=== PATIENT | male | born 1960 | race Hispanic/Latino ===

== ENCOUNTER 2020-04-12 14:13 | Inpatient (IN) | payer OTHER ==
--- NOTE | 2020-04-12 14:33 | Emergency Department Report ---
ED Neuro Deficit HPI - General Chief Complaint: Neuro Symptoms/Deficit Stated Complaint: LT ARM NUMBNESS Time Seen by Provider: 04/12/20 14:28 Source: EMS Mode of arrival: Stretcher Limitations: Other - History of Present Illness Initial Comments: 59-year-old male, history of prior CVA and TIAs, presents to ED with worsening left-sided weakness and [facility] Patient reports baseline left arm weakness from prior CVA. He states his left arm and leg numbness and weakness began at 3 PM on yesterday. Patient reports he was seen at the [facility] at that time. Patient states upon waking this morning his slurred speech and weakness are significantly worse. -: days(s) (1) Location: speech, left arm, left leg Presenting Symptoms: Present: Weak/Paralyzed One Side, Unable to Speak Clearly History of same: Yes Severity: moderate Improves With: none Worsens With: none On Anticoagulants: No Context: gradual onset Associated Symptoms: denies: chest pain, headaches, shortness of breath Treatments Prior to Arrival: none - Related Data Home Medications: Home Medications Medication Instructions Recorded Confirmed Last Taken Ibuprofen [Motrin] 800 mg PO BID PRN 04/14/20 04/14/20 Unknown Lamisil At 1% CREAM 1 applic TRANSDERMA DAILY 04/14/20 04/14/20 Unknown Lisinopril [Zestril TAB] 15 mg PO QDAY 04/14/20 04/14/20 2 Days Ago ~04/12/20 Terbinafine (Nf) [LamiSIL] 250 mg PO QDAY 04/14/20 04/14/20 Unknown hydroCHLOROthiazide [HCTZ] 25 mg PO QDAY 04/14/20 04/14/20 2 Days Ago ~04/12/20 Allergies/Adverse Reactions: Allergies Allergy/AdvReac Type Severity Reaction Status Date / Time clonidine AdvReac Unknown Verified 04/12/20 14:54 codeine AdvReac Unknown Verified 04/12/20 14:54 Penicillins AdvReac Unknown Verified 04/12/20 14:54 ED Review of Systems ROS: Stated complaint: LT ARM NUMBNESS Other details as noted in HPI Comment: All other systems reviewed and negative Constitutional: denies: fever Cardiovascular: denies: chest pain Neurological: weakness. denies: headache ED Past Medical Hx - Medications Home Medications: Home Medications Medication Instructions Recorded Confirmed Last Taken Type Ibuprofen [Motrin] 800 mg PO BID PRN 04/14/20 04/14/20 Unknown History Lamisil At 1% CREAM 1 applic TRANSDERMA DAILY 04/14/20 04/14/20 Unknown History Lisinopril [Zestril TAB] 15 mg PO QDAY 04/14/20 04/14/20 2 Days Ago History ~04/12/20 Terbinafine (Nf) [LamiSIL] 250 mg PO QDAY 04/14/20 04/14/20 Unknown History hydroCHLOROthiazide [HCTZ] 25 mg PO QDAY 04/14/20 04/14/20 2 Days Ago History ~04/12/20 ED Neuro Physical Exam - General Limitations: Other General appearance: alert, in no apparent distress Suspected Stroke: Yes - Head Head exam: Present: atraumatic, normocephalic - Eye Eye exam: Present: normal appearance, EOMI - ENT ENT exam: Present: normal exam, mucous membranes moist - Neck Neck exam: Present: normal inspection - Respiratory Respiratory exam: Present: normal lung sounds bilaterally. Absent: respiratory distress - Cardiovascular Cardiovascular Exam: Present: regular rate, normal rhythm - GI/Abdominal GI/Abdominal exam: Present: soft. Absent: distended, tenderness - Extremities Exam Extremities exam: Present: normal inspection - Neurological Exam Neurological exam: Present: alert, oriented X3 - NIHSS Assessment Interval: Baseline 1a. Level of Consciousness: alert/keenly responsive 1b. LOC Questions: answers both correctly 1c. LOC Commands: performs tasks correctly 2. Best Gaze: normal 3. Visual: no visual loss 4. Facial Palsy: partial paralysis 5b. Motor Arm Right: no drift 5a. Motor Arm Left: drift 6a. Motor Leg Left: drift 6b. Motor Leg Right: no drift 7. Limb Ataxia: present 1 limb 8. Sensory: mild/moderate sensory loss 9. Best Language: no aphasia 10. Dysarthria: mild/moderate dysarthria 11. Extinction/Inattention: no abnormality Total Score: 7 Stroke Severity: Moderate Stroke - Psychiatric Psychiatric exam: Present: normal affect, normal mood - Skin Skin exam: Present: warm, dry, intact, normal color ED Course Vital Signs 04/12/20 04/12/20 04/12/20 14:53 16:30 16:38 Temperature 97.8 F Pulse Rate 111 H 98 H Respiratory 24 15 Rate Blood Pressure Blood Pressure 143/81 [Left] O2 Sat by Pulse 100 97 Oximetry 04/12/20 04/12/20 04/12/20 16:45 17:00 17:16 Temperature Pulse Rate 88 90 86 Respiratory 19 17 14 Rate Blood Pressure 125/71 125/71 126/74 Blood Pressure [Left] O2 Sat by Pulse 96 96 Oximetry 04/12/20 04/12/20 04/12/20 17:30 17:50 18:00 Temperature Pulse Rate 91 H 86 87 Respiratory 15 17 17 Rate Blood Pressure 138/87 124/76 124/76 Blood Pressure [Left] O2 Sat by Pulse 95 93 Oximetry 04/12/20 04/12/20 04/12/20 18:10 18:20 18:30 Temperature Pulse Rate 85 87 92 H Respiratory 17 16 12 Rate Blood Pressure 115/77 111/78 111/78 Blood Pressure [Left] O2 Sat by Pulse 93 93 Oximetry 04/12/20 04/12/20 04/12/20 18:44 18:50 19:00 Temperature Pulse Rate 82 83 85 Respiratory 17 18 16 Rate Blood Pressure 126/78 126/78 108/79 Blood Pressure [Left] O2 Sat by Pulse Oximetry 04/12/20 04/12/20 04/12/20 19:10 19:20 19:30 Temperature Pulse Rate 93 H 93 H 90 Respiratory 14 19 18 Rate Blood Pressure 108/79 116/74 122/76 Blood Pressure [Left] O2 Sat by Pulse Oximetry 04/12/20 04/12/20 04/12/20 19:40 19:50 20:00 Temperature Pulse Rate 91 H 96 H 92 H Respiratory 21 18 16 Rate Blood Pressure 122/76 124/78 139/78 Blood Pressure [Left] O2 Sat by Pulse Oximetry 04/12/20 04/12/20 20:10 20:20 Temperature Pulse Rate 85 84 Respiratory 14 17 Rate Blood Pressure 139/78 132/87 Blood Pressure [Left] O2 Sat by Pulse Oximetry - Consultations Consultation #1: 04/12/20 14:35 Spoke w/ Dr Sethi, teleneurologist. History given. Requests CTA Head and Neck in addition to CT Head. He will evaluate pt upon return to room. - Lab Data Result diagrams: 04/12/20 14:47 04/12/20 14:47 Lab Results 04/12/20 04/12/20 04/12/20 Range/Units 14:47 14:47 14:47 WBC 7.6 (4.5-11.0) K/mm3 RBC 4.35 (3.65-5.03) M/mm3 Hgb 14.5 (11.8-15.2) gm/dl Hct 40.3 (35.5-45.6) % MCV 93 (84-94) fl MCH 33 H (28-32) pg MCHC 36 H (32-34) % RDW 12.9 L (13.2-15.2) % Plt Count 198 (140-440) K/mm3 Lymph % (Auto) 19.0 (13.4-35.0) % [place]hing % (Auto) 7.6 H (0.0-7.3) % Eos % (Auto) 1.3 (0.0-4.3) % Baso % (Auto) 0.7 (0.0-1.8) % Lymph # (Auto) 1.4 (1.2-5.4) K/mm3 [place]hing # (Auto) 0.6 (0.0-0.8) K/mm3 Eos # (Auto) 0.1 (0.0-0.4) K/mm3 Baso # (Auto) 0.1 (0.0-0.1) K/mm3 Seg Neutrophils % 71.4 H (40.0-70.0) % Seg Neutrophils # 5.4 (1.8-7.7) K/mm3 PT 13.3 (12.2-14.9) Sec. INR 1.02 (0.87-1.13) APTT 29.5 (24.2-36.6) Sec. Thrombin Time 17.7 (15.1-19.6) Sec. Sodium (137-145) mmol/L Potassium (3.6-5.0) mmol/L Chloride (98-107) mmol/L Carbon Dioxide (22-30) mmol/L Anion Gap mmol/L BUN (9-20) mg/dL Creatinine (0.8-1.3) mg/dL Estimated GFR ml/min BUN/Creatinine Ratio % Glucose (75-100) mg/dL Calcium (8.4-10.2) mg/dL Troponin T < 0.010 (0.00-0.029) ng/mL Nasal Screen MRSA (PCR) (Negative) 04/12/20 04/13/20 Range/Units 14:47 03:38 WBC (4.5-11.0) K/mm3 RBC (3.65-5.03) M/mm3 Hgb (11.8-15.2) gm/dl Hct (35.5-45.6) % MCV (84-94) fl MCH (28-32) pg MCHC (32-34) % RDW (13.2-15.2) % Plt Count (140-440) K/mm3 Lymph % (Auto) (13.4-35.0) % Pershing % (Auto) (0.0-7.3) % Eos % (Auto) (0.0-4.3) % Baso % (Auto) (0.0-1.8) % Lymph # (Auto) (1.2-5.4) K/mm3 Pershing # (Auto) (0.0-0.8) K/mm3 Eos # (Auto) (0.0-0.4) K/mm3 Baso # (Auto) (0.0-0.1) K/mm3 Seg Neutrophils % (40.0-70.0) % Seg Neutrophils # (1.8-7.7) K/mm3 PT (12.2-14.9) Sec. INR (0.87-1.13) APTT (24.2-36.6) Sec. Thrombin Time (15.1-19.6) Sec. Sodium 130 L (137-145) mmol/L Potassium 3.8 (3.6-5.0) mmol/L Chloride 96.5 L (98-107) mmol/L Carbon Dioxide 26 (22-30) mmol/L Anion Gap 11 mmol/L BUN 16 (9-20) mg/dL Creatinine 0.8 (0.8-1.3) mg/dL Estimated GFR > 60 ml/min BUN/Creatinine Ratio 20 % Glucose 131 H (75-100) mg/dL Calcium 8.9 (8.4-10.2) mg/dL Troponin T (0.00-0.029) ng/mL Nasal Screen MRSA (PCR) Negative (Negative) - EKG Data -: EKG Interpreted by Id EKG shows normal: sinus rhythm, axis, intervals, QRS complexes, ST-T waves Rate: normal Interpretation: no acute changes - Radiology Data Radiology results: report reviewed, image reviewed - Medical Decision Making 59-year-old male, history of prior CVA and TIAs, presents to ED with worsening left-sided weakness and [facility]. Patient reports baseline left arm weakness from prior CVA. He states his left arm and leg numbness and weakness began at 3 PM on yesterday. Patient states upon waking this morning his slurred speech and weakness are significantly worse. NIH score of 7. Patient not a candidate for TPA. CT head negative for any acute findings. CTA shows no evidence of large vessel occlusion. Patient will be admitted for stroke work-up by hospitalist, Dr. Saenz. - Differential Diagnosis CVA Critical care attestation.: If time is entered above; I have spent that time in minutes in the direct care of this critically ill patient, excluding procedure time. ED Disposition Clinical Impression: CVA (cerebral vascular accident), Hyponatremia Disposition: OP ADMIT IP TO THIS HOSP Is pt being admited?: Yes Condition: Stable Time of Disposition: 15:28
--- NOTE | 2020-04-12 14:47 | Cat Scan Report ---
NONENHANCED CT SCAN OF THE BRAIN: INDICATION: Stroke TECHNIQUE: Routine CT head without contrast. Sagittal and coronal reformatted images were obtained. A ll CT scans at this location are performed using CT dose reduction for ALARA by means of automated ex posure control. COMPARISON: None. FINDINGS: BRAIN / INTRACRANIAL CONTENTS: Hemorrhage:No intracranial hemorrhage; no subarachnoid hemorrhage Stroke mimics: No stroke mimics Acute/subacute territorial infarction: Dawson-white matter interface: No blurring; normal Insular cortex: Normal Basal ganglia: Normal Wedge shaped parenchymal low density area: Not present Cortical sulci: Not effaced Lacunar infarctions: No acute lacunae Vasculopathy: Dense middle cerebral artery sign: Not present Internal carotid artery terminus: Calcification in the ophthalmic and the communicating segments o f both internal carotid arteries Basilar artery: Atherosclerotic calcification in the basilar artery Middle cerebral artery branches in the sylvian fissure (Dot sign): Normal Calcified embolus: Not present ASPECT score: 10 Chronic lesions: Confluent periventricular low-attenuation areas in both cerebral hemispheres due to chronic small vessel disease; chronic right thalamic lacune White matter: Craniocervical junction:No significant abnormality Orbits:No significant abnormality Paranasal sinuses/mastoids:No significant abnormality Additional findings: None IMPRESSION: Intracerebral hemorrhage No stroke mimics No CT findings to suggest acute territorial infarction: Chronic white matter ischemic changes due to chronic small vessel disease This exam was performed as part of a code stroke protocol. The exam was completed at [facility] on 04/12/2020 1:36 PM. The exam was reviewed at 1:45 PM and ER physician was notified at 1:47 PM. Signer Name: Theresa Carr MD Signed: 04/12/2020 2:42 PM Workstation Name: [id number]
[2020-04-12 14:57] LABS: Basophils # (Auto) 0.1 K/mm3 (0.0-0.1); Basophils % (Auto) 0.7 % (0.0-1.8); Eosinophils # (Auto) 0.1 K/mm3 (0.0-0.4); Eosinophils % (Auto) 1.3 % (0.0-4.3); Lymphocytes # (Auto) 1.4 K/mm3 (1.2-5.4); Mean Corpuscular HGB Conc 36 % (32-34); Mean Corpuscular Volume 93 fl (84-94); Monocytes # (Auto) 0.6 K/mm3 (0.0-0.8); Monocytes % (Auto) 7.6 % (0.0-7.3); Platelet Count 198 K/mm3 (140-440); Red Blood Count 4.35 M/mm3 (3.65-5.03); Red Cell Distribution Width 12.9 % (13.2-15.2)
[2020-04-12 15:01] LABS: Hematocrit 40.3 % (35.5-45.6); Hemoglobin 14.5 gm/dl (11.8-15.2)
--- NOTE | 2020-04-12 15:08 | Consultation ---
History of Present Illness History of present illness: [facility] Consult Note # Demographics Consult Type: 6-24 hour Stroke First Name: Johny Last Name: Jackeline Date of : 1960 Age: 59 Gender: male Time of initial page ([place] ): 04-12-2020, 12:20 Time of return call ([place] ): 04-12-2020, 12:20 # HPI Additional History: 59 year-old male with prior stroke with residual left-sided weakness presents with worsening of his baseline left-sided weakness and dysarthria. He first noticed symptoms yesterday at 3 PM. When he woke up this morning, the symptoms were worse. He arrived outside the tPa window. # Scores Time of exam and NIHSS ([place] ): 04-12-2020, 13:03 Level of Consciousness 1a: [0] = Alert; keenly responsive LOC Questions 1b: [0] = Answers both questions correctly LOC Commands 1c: [0] = Performs both tasks correctly Best Gaze 2: [0] = Normal Visual 3: [0] = No visual loss Facial Palsy 4: [2] = Partial paralysis Motor Arm Left 5a: [1] = Drift Motor Arm Right 5b: [0] = No drift Motor Leg Left 6a: [1] = Drift Motor Leg Right 6b: [0] = No drift Limb Ataxia 7: [1] = Present in one limb Sensory 8: [1] = Eovc-ni-yuxahmvs sensory loss Best Language 9: [0] = No aphasia Dysarthria 10: [1] = [id number]-jmprinoj dysarthria Extinction and Inattention 11: [0] = No abnormality NIHSS Total: 7 # PMH-FH-SH Past Medical History: stroke # Exam Vitals: vital signs reviewed # Data Head CT: no bleed CTA Head: no large vessel occlusion CTA Neck: patent vessels, preliminarily reviewed by me, please refer to radiology read for official reading # Assessment Impression: Left-sided weakness with dysarthria - possible stroke versus recrudescence of prior stroke # Plan Thrombolytic/Intervention: NOT IV Alteplase or IA Intervention Alteplase Exclusion: > 4.5 hours Intraarterial Exclusion: no large vessel occlusion (LVO) Labs: hemoglobin A1c, lipid panel Imaging: (urgency: routine admission): MRI Brain without contrast Diagnostic Test: echo with bubble study Therapy/Evaluation: NPO until swallow evaluation, PT/OT evaluation, speech/swallow consultation Medication: aspirin 325 mg daily, start statin with goal of LDL < 70 Other: permissive hypertension, telemetry monitoring, I have discussed my recommendations with the referring provider Disposition: admit Medications and Allergies Allergies Allergy/AdvReac Type Severity Reaction Status Date / Time clonidine AdvReac Unknown Verified 04/12/20 14:54 codeine AdvReac Unknown Verified 04/12/20 14:54 Penicillins AdvReac Unknown Verified 04/12/20 14:54 Physical Examination - Vital Signs Vital Signs: Vital Signs Pulse Resp BP Pulse Ox 111 H 24 143/81 100 04/12/20 14:53 04/12/20 14:53 04/12/20 14:53 04/12/20 14:53 Results - Laboratory Findings CBC and BMP: 04/12/20 14:47 Abnormal Lab Findings: Abnormal Labs 04/12/20 14:47 MCH 33 H MCHC 36 H RDW 12.9 L [place] % (Auto) 7.6 H Seg Neutrophils % 71.4 H
[2020-04-12 15:13] LABS: INR 1.02 (0.87-1.13); Partial Thromboplastin Time 29.5 Sec. (24.2-36.6)
[2020-04-12] MEDS ORDERED: ASPIRIN 325 MG TAB PO ONE (15:15)
[2020-04-12 15:18] LABS: BUN/Creatinine Ratio 20; Blood Urea Nitrogen 16 mg/dL (9-20); Calcium 8.9 mg/dL (8.4-10.2); Hemolysis Index 18
[2020-04-12 15:20] LABS: Thrombin Time 17.7 Sec. (15.1-19.6)
--- NOTE | 2020-04-12 15:20 | Cat Scan Report ---
CTA NECK WITH CONTRAST 04/12/2020 INDICATION / CLINICAL INFORMATION: MAIN. COMPARISON: None. TECHNIQUE: Routine CTA of the neck is performed. 3-D/MIP reformats were postprocessed. Percentage st enosis is determined by direct quantitative measurements of diseased internal carotid artery diameter compared with normal distal internal carotid artery reference segments or by criteria similar to MARIYA CET where applicable. All CT scans at this location are performed using CT dose reduction for ALARA b y means of automated exposure control. CONTRAST: 100 ml of Isovue 370 FINDINGS: Carotid bifurcations: There is no evidence of carotid bifurcation stenosis. Carotid arteries: No significant abnormality. Cervical vertebral arteries: No significant abnormality. Aortic arch: No significant abnormality. None. IMPRESSION: No significant abnormality. Signer Name: Yusuf Munguia MD Signed: 04/12/2020 3:15 PM Workstation Name: [id number]
--- NOTE | 2020-04-12 15:23 | Cat Scan Report ---
CTA HEAD WITH CONTRAST 04/12/2020 HISTORY: Stroke COMPARISON: None. TECHNIQUE: All CT scans at this location are performed using CT dose reduction for ALARA by means of automated exposure control.. 3-D/MIP reformats postprocessed. Percentage stenosis is determined by d irect quantitative measurements of diseased internal carotid artery diameter compared with normal dis obie internal carotid artery reference segments or by criteria similar to NASCET where applicable. CONTRAST: 100 ml of Omnipaque 350 FINDINGS: CTA HEAD: Intracranial vertebral arteries: Diffuse atherosclerotic calcification and irregularity with no evide nce of significant stenosis. Basilar artery: Diffuse atherosclerotic calcification irregularity with no evidence of significant st enosis. Posterior cerebral arteries: Atherosclerotic irregularity seen along the course of the posterior cere bral arteries bilaterally, slightly more prominently on the right. Intracranial internal carotid arteries: Atherosclerotic vascular calcifications, with no evidence of significant stenosis. Anterior cerebral arteries: No significant abnormality. Middle cerebral arteries: Atherosclerotic irregularity in the left MCA M1 segment. Otherwise unremark able. Dural venous sinuses:Not optimally opacified. No significant abnormality. Additional findings: None. IMPRESSION: 1. Cranial atherosclerotic changes as detailed above. No evidence of vessel occlusion. Signer Name: Yusuf Munguai MD Signed: 04/12/2020 3:19 PM Workstation Name: [email or web address]
[2020-04-12] MEDS ORDERED: MAGNESIUM HYDROXIDE (MOM) ORAL LIQD UDC PO PRN (15:39)
[2020-04-12] MEDS ORDERED: PROMETHAZINE 25 MG RECT SUPP PR PRN (15:39)
[2020-04-12] MEDS ORDERED: ALBUTEROL 2.5 MG/3 ML NEBU IH PRN (15:39)
--- NOTE | 2020-04-12 15:41 | History and Physical Report ---
History of Present Illness Chief complaint: Im getting weaker on my left side History of present illness: 59 YO Male with CVA complicated by LHP and Dysarthria, Obesity, HLD presents to ED for evaluation. Patient reports "I am weaker in my left side". Patient states that he experienced sudden onset worsening left arm and leg weakness at approximately 1500 hrs. yesterday. Patient is currently incarcerated and was seen in the [facility] for the aforementioned symptoms. Patient states that he awoke from sleep this morning and was found to have worsening left-sided weakness as well as slurred speech. EMS was notified and upon arrival the patient was found to be in distress with a neurologic deficit. A code stroke was called and the patient was transported to [facility] for further care and evaluation of the aforementioned symptoms. The patient was seen and evaluated in the emergency department. All lab and imaging studies reviewed. Patient found to have symptoms consistent with CVA. Patient placed in observation status and admitted to medical floor and initiated on CVA protocol. Patient denies fever, chills, chest pain, palpitation, productive cough, skin rash, recent ill contacts, or known exposure to COVID-19. No prior admission for review. No medication listed at time of admission for reconciliation. Advanced care planning conducted in ED. Past History Past Medical History: hyperlipidemia, stroke Past Surgical History: No surgical history, Other (Reviewed) Social history: single. denies: smoking, alcohol abuse, prescription drug abuse Family history: diabetes, hypertension Medications and Allergies Allergies Allergy/AdvReac Type Severity Reaction Status Date / Time clonidine AdvReac Unknown Verified 04/12/20 14:54 codeine AdvReac Unknown Verified 04/12/20 14:54 Penicillins AdvReac Unknown Verified 04/12/20 14:54 Active Meds: Active Medications Acetaminophen (Acetaminophen 325 Mg Tab) 650 mg PO Q4H PRN PRN Reason: Pain, Mild (1-3) Albuterol (Albuterol 2.5 Mg/3 Ml Nebu) 2.5 mg IH Q3HRT PRN PRN Reason: Shortness Of Breath Bisacodyl (Bisacodyl 10 Mg Rect Supp) 10 mg VA QDAY PRN PRN Reason: Constipation Magnesium Hydroxide (Magnesium Hydroxide (Mom) Oral Liqd Udc) 30 ml PO Q4H PRN PRN Reason: Constipation Metoclopramide HCl (Metoclopramide 10 Mg Tab) 10 mg PO Q6H PRN PRN Reason: Nausea And Vomiting Ondansetron HCl (Ondansetron 4 Mg/2 Ml Inj) 4 mg IV Q8H PRN PRN Reason: Nausea And Vomiting Promethazine HCl (Promethazine 25 Mg Rect Supp) 25 mg VA Q6H PRN PRN Reason: Nausea And Vomiting Sodium Chloride (Sodium Chloride 0.9% 10 Ml Flush Syringe) 10 ml INJ PRN PRN PRN Reason: LINE FLUSH Review of Systems Constitutional: no weight loss, no weight gain, no fever, no chills Ears, nose, mouth and throat: no ear pain, no ear discharge, no tinnitis, no decreased hearing, no nose pain Cardiovascular: no chest pain, no orthopnea, no palpitations, no rapid/irregular heart beat, no edema Respiratory: no cough, no excessive sputum, no hemoptysis, no shortness of breath Gastrointestinal: no abdominal pain, no nausea, no vomiting, no constipation Genitourinary Male: no dysuria, no hematuria, no flank pain, no discharge, no incontinence Rectal: no pain, no incontinence, no bleeding Musculoskeletal: no neck stiffness, no neck pain, no shooting arm pain, no arm numbness/tingling Integumentary: no rash, no pruritis, no redness, no wounds, no jaundice, no boils Neurological: weakness, change in speech, gait dysfunction, motor disturbance, no head injury, no seizures, no syncope, no tremors Psychiatric: no anxiety, no memory loss, no change in sleep habits, no sleep dis turbances, no hypersomnia, no change in appetite, no change in libido Endocrine: no cold intolerance, no heat intolerance, no excessive thirst, no excessive sweating, no flushing Hematologic/Lymphatic: no easy bruising, no easy bleeding Allergic/Immunologic: no urticaria Exam - Constitutional Vitals: Temp Pulse Resp BP Pulse Ox 111 H 24 143/81 100 04/12/20 14:53 04/12/20 14:53 04/12/20 14:53 04/12/20 14:53 General appearance: Present: mild distress - EENT Eyes: Present: PERRL ENT: hearing intact, clear oral mucosa - Neck Neck: Present: supple, normal ROM - Respiratory Respiratory effort: normal Respiratory: bilateral: CTA - Cardiovascular Heart Sounds: Present: S1 & S2. Absent: rub, click - Extremities Extremities: pulses symmetrical, No edema Peripheral Pulses: within normal limits - Abdominal General gastrointestinal: Present: soft, non-tender, non-distended, normal bowel sounds Male genitourinary: Present: normal - Integumentary Integumentary: Present: clear, warm, dry - Musculoskeletal Musculoskeletal: left sided weakness - Psychiatric Psychiatric: appropriate mood/affect, intact judgment & insight - Neurologic Neurologic: CNII-XII intact, focal deficits, moves all extremities, no gait norm al HEART Score - HEART Score Troponin: Troponin T < 0.010 ng/mL (0.00-0.029) 04/12/20 14:47 Results - Labs CBC & Chem 7: 04/12/20 14:47 04/12/20 14:47 Labs: Abnormal lab results 04/12/20 04/12/20 Range/Units 14:47 14:47 MCH 33 H (28-32) pg MCHC 36 H (32-34) % RDW 12.9 L (13.2-15.2) % [place] % (Auto) 7.6 H (0.0-7.3) % Seg Neutrophils % 71.4 H (40.0-70.0) % Sodium 130 L (137-145) mmol/L Chloride 96.5 L (98-107) mmol/L Glucose 131 H (75-100) mg/dL Assessment and Plan - Patient Problems (1) CVA (cerebral vascular accident) Status: Acute Plan to address problem: CVA protocol: CT scan head, echocardiogram, carotid Doppler, dual antiplatelet therapy, physical therapy consulted, Occupational Therapy consulted, speech therapy consulted, lipid panel, statin therapy, (2) HLD (hyperlipidemia) Status: Acute Qualifiers: Hyperlipidemia type: mixed hyperlipidemia Qualified Code(s): E78.2 - Mixed hyperlipidemia Plan to address problem: Lipid panel, statin therapy as clinically indicated, low-cholesterol diet. (3) Obesity Status: Acute Plan to address problem: Balanced diet, increase physical activity at discharge, outpatient pulmonary follow-up for sleep study. (4) DVT prophylaxis Status: Acute Plan to address problem: SCD to bilateral lower extremities while in bed, patient is ambulatory (5) Advance care planning Status: Acute Plan to address problem: Disease education conducted, patient is full code, care plan discussed, prognosis discussed, diagnosis discussed, patient knowledges understanding and agreement with care plan, +30 minutes.
--- NOTE | 2020-04-12 15:57 | XRay Report ---
CHEST 1 VIEW 04/12/2020 3:46 PM INDICATION / CLINICAL INFORMATION: stroke alert. COMPARISON: None available. FINDINGS: SUPPORT DEVICES: None. HEART / MEDIASTINUM: No significant abnormality. LUNGS / PLEURA: No significant pulmonary or pleural abnormality. No pneumothorax. There is a small ca lcified granuloma in the left upper lung zone. ADDITIONAL FINDINGS: No significant additional findings. IMPRESSION: 1. No acute findings. Signer Name: Daniel Cosby MD Signed: 04/12/2020 3:53 PM Workstation Name: [id number]
--- NOTE | 2020-04-12 18:01 | Vascular Lab Report ---
DUPLEX DOPPLER ULTRASOUND CAROTID, BILATERAL INDICATION / CLINICAL INFORMATION: stroke. COMPARISON: None available. FINDINGS: RIGHT CAROTID: - PLAQUE ESTIMATE (%): < 50% - CCA velocity: 107 cm/sec. - ICA peak systolic velocity: 95 cm/sec. - ICA/CCA PSV Ratio: Less than 2 Right Vertebral Artery: Antegrade flow. LEFT CAROTID: - PLAQUE ESTIMATE (%): < 50% - CCA velocity: 115 cm/sec. - ICA peak systolic velocity: 117 cm/sec. - ICA/CCA PSV Ratio: Less than 2 Left Vertebral Artery: Antegrade flow. IMPRESSION: 1. Right Internal Carotid Artery: Less than 50% diameter stenosis. 2. Left Internal Carotid Artery: Less than 50% diameter stenosis. Velocity criteria are extrapolated from diameter data as defined by the Society of Radiologists in Ul trasound Consensus Conference, Radiology 2003; 229;340-346. NO STENOSIS (NORMAL) - Plaque = none; ICA PSV < 125 cm/sec; ICA/CCA PSV Ratio < 2.0 <50% STENOSIS - Plaque < 50%; ICA PSV < 125 cm/sec; ICA/CCA PSV Ratio < 2.0 50-69% STENOSIS - Plaque > 50%; ICA PSV = 125-230 cm/sec; ICA/CCA PSV Ratio = 2.0-4.0 >70% BUT <100% STENOSIS - Plaque > 50%; ICA PSV > 230 cm/sec; ICA/CCA PSV Ratio > 4.0 NEAR OCCLUSION - Plaque = visible lumen; ICA PSV = high/low/none; ICA/CCA PSV Ratio = variable TOTAL OCCLUSION - Plaque = no lumen; ICA PSV = none; ICA/CCA PSV Ratio = N/A Signer Name: Pal Valladares MD Signed: 04/12/2020 5:57 PM Workstation Name: [id number]
[2020-04-12] MEDS: ACETAMINOPHEN 325 MG TAB PO PRN (22:48)
[2020-04-13] MEDS: ACETAMINOPHEN 325 MG TAB PO PRN ×2 (03:22→21:29)
--- NOTE | 2020-04-13 10:10 | Magnetic Resonance Report ---
MRI BRAIN WITHOUT CONTRAST INDICATION / CLINICAL INFORMATION: CVA. TECHNIQUE: Multiplanar, multisequence MR images of the brain were obtained. COMPARISON: None available. FINDINGS: BRAIN / INTRACRANIAL CONTENTS: Ventricles and cortical sulci are within normal limits for size and co nfiguration given the patient's stated age of 59 years. Extensive periventricular and deep white ulises er hyperintensities are noted consistent with advanced microvascular ischemic changes. There is no ma ss effect. No evidence of intracranial hemorrhage or extra-axial fluid collection is seen. There is n o indication of remote cortical infarction. Diffusion weighted scans are negative. There is evidence of a remote small deep infarction in the right thalamus (pulvinar). Dilated perivascular spaces are p resent in a bilateral gangliocapsular distribution. Incidental note is made of deformity of the rostrum of the corpus callosum on the left secondary to m arked tortuosity of the A2 segments of the anterior cerebral arteries. An area of restricted diffusion is demonstrated in the right side of the samuel consistent with acute r ight-sided pontine infarction. The cerebellum has an unremarkable appearance. CRANIOCERVICAL JUNCTION: No abnormalities are identified at the craniocervical junction. VASCULAR FLOW-VOIDS: Normal flow-voids are present within the major intracranial vessels. ORBITS: The orbits have an unremarkable appearance. SINUSES / MASTOIDS: There is no indication of inflammatory disease in the paranasal sinuses or mastoi d air cells. IMPRESSION: 1. Acute right-sided pontine infarction involving most of the mid samuel. 2. Remote small deep infarction in the right thalamus (pulvinar). 3. Advanced microvascular ischemic changes in the white matter of both cerebral hemispheres. Signer Name: Mynor Schneider MD Signed: 04/13/2020 10:06 AM Workstation Name: [id number]
[2020-04-13] MEDS: ASPIRIN 325 MG TAB PO SCH (10:12)
[2020-04-13] MEDS: CLOPIDOGREL 75 MG TAB PO SCH (10:12)
[2020-04-13] MEDS ORDERED: FLU VACC QUAD 2020-2021 (6 months +)/PF 60 0.5 ML SYRINGE IM ONE (12:00)
--- NOTE | 2020-04-13 12:43 | Progress Note ---
Assessment and Plan Assessment and plan: #CVA CT head showed no acute infarct CTA head and neck negative for any acute thrombus Aspirin 325 mg daily Plavix 75 mg daily for 21 days Lipid panel, hemoglobin A1c, statins MRI brain pending Echocardiogram with bubble study pending Neurology evaluation PT/OT Speech therapy evaluation Allow permissive hypertension for 24 to 48 hours. #Hypertension Allow permissive hypertension #Hyperlipidemia Lipid panel Statins #Obesity Diet and exercise DVT prophylaxis-Lovenox History Interval history: 04/13. 59-year-old male with a medical history of hypertension, hyperlipidemia admitted from a correctional facility with slurred speech and left-sided weakness. Currently being worked up for CVA. CT head in the ER negative for any stroke. CTA head and neck negative for any acute thrombosis. Patient seen and examined at bedside this morning. Patient has slow speech and left-sided weakness. Plan to have an echocardiogram with bubble study and MRI brain today. PT/OT to see patient as well. Neurology evaluation pending Hospitalist Physical - Physical exam Narrative exam: VITAL SIGNS: Reviewed. GENERAL: Awake HEAD: No signs of head trauma. EYES: Pupils are equal. Extraocular motions intact. MOUTH: Oropharynx is normal. NECK: No adenopathy, no JVD. CHEST: Chest with diminished breath sounds bilaterally. No wheezes, rales, or rhonchi. CARDIAC: normal S1 and S2, without murmurs, gallops, or rubs. ABDOMEN: Soft, non tender and non distended. No rebound or guarding, and no masses palpated. Bowel Sounds normal. MUSCULOSKELETAL: No edema NEUROLOGIC EXAM: Alert and oriented x3. Left upper and lower extremity weakness. Gait not checked SKIN: No obvious lesions - Constitutional Vitals: Temp Pulse Resp BP Pulse Ox 98.0 F 80 18 130/80 95 04/13/20 04:11 04/13/20 11:00 04/13/20 04:11 04/13/20 07:37 04/13/20 07:37 HEART Score - HEART Score Troponin: Troponin T < 0.010 ng/mL (0.00-0.029) 04/12/20 14:47 Results - Labs CBC & Chem 7: 04/12/20 14:47 04/12/20 14:47 Labs: Laboratory Last Values WBC 7.6 K/mm3 (4.5-11.0) 04/12/20 14:47 RBC 4.35 M/mm3 (3.65-5.03) 04/12/20 14:47 Hgb 14.5 gm/dl (11.8-15.2) 04/12/20 14:47 Hct 40.3 % (35.5-45.6) 04/12/20 14:47 MCV 93 fl (84-94) 04/12/20 14:47 MCH 33 pg (28-32) H 04/12/20 14:47 MCHC 36 % (32-34) H 04/12/20 14:47 RDW 12.9 % (13.2-15.2) L 04/12/20 14:47 Plt Count 198 K/mm3 (140-440) 04/12/20 14:47 Lymph % (Auto) 19.0 % (13.4-35.0) 04/12/20 14:47 [place] % (Auto) 7.6 % (0.0-7.3) H 04/12/20 14:47 Eos % (Auto) 1.3 % (0.0-4.3) 04/12/20 14:47 Baso % (Auto) 0.7 % (0.0-1.8) 04/12/20 14:47 Lymph # (Auto) 1.4 K/mm3 (1.2-5.4) 04/12/20 14:47 [place] # (Auto) 0.6 K/mm3 (0.0-0.8) 04/12/20 14:47 Eos # (Auto) 0.1 K/mm3 (0.0-0.4) 04/12/20 14:47 Baso # (Auto) 0.1 K/mm3 (0.0-0.1) 04/12/20 14:47 Seg Neutrophils % 71.4 % (40.0-70.0) H 04/12/20 14:47 Seg Neutrophils # 5.4 K/mm3 (1.8-7.7) 04/12/20 14:47 PT 13.3 Sec. (12.2-14.9) 04/12/20 14:47 INR 1.02 (0.87-1.13) 04/12/20 14:47 APTT 29.5 Sec. (24.2-36.6) 04/12/20 14:47 Thrombin Time 17.7 Sec. (15.1-19.6) 04/12/20 14:47 Sodium 130 mmol/L (137-145) L 04/12/20 14:47 Potassium 3.8 mmol/L (3.6-5.0) 04/12/20 14:47 Chloride 96.5 mmol/L (98-107) L 04/12/20 14:47 Carbon Dioxide 26 mmol/L (22-30) 04/12/20 14:47 Anion Gap 11 mmol/L 04/12/20 14:47 BUN 16 mg/dL (9-20) 04/12/20 14:47 Creatinine 0.8 mg/dL (0.8-1.3) 04/12/20 14:47 Estimated GFR > 60 ml/min 04/12/20 14:47 BUN/Creatinine Ratio 20 % 04/12/20 14:47 Glucose 131 mg/dL (75-100) H 04/12/20 14:47 Calcium 8.9 mg/dL (8.4-10.2) 04/12/20 14:47 Troponin T < 0.010 ng/mL (0.00-0.029) 04/12/20 14:47 King/IV: Voiding Method Urinal Active Medications - Current Medications Current Medications: Generic Name Dose Route Start Last Admin Trade Name Freq PRN Reason Stop Dose Admin Acetaminophen 650 mg 04/12/20 15:39 04/13/20 03:22 Acetaminophen 325 Mg Tab PO 650 mg Q4H PRN Administration Pain, Mild (1-3) Albuterol 2.5 mg 04/12/20 15:39 Albuterol 2.5 Mg/3 Ml Nebu IH Q3HRT PRN Shortness Of Breath Aspirin 325 mg 04/13/20 10:00 04/13/20 10:12 Aspirin 325 Mg Tab PO 325 mg QDAY TAYLOR Administration Atorvastatin Calcium 80 mg 04/13/20 22:00 Atorvastatin 40 Mg Tab PO QHS TAYLOR Bisacodyl 10 mg 04/12/20 15:39 Bisacodyl 10 Mg Rect Supp [place] QDAY PRN Constipation Clopidogrel Bisulfate 75 mg 04/13/20 10:00 04/13/20 10:12 Clopidogrel 75 Mg Tab PO 75 mg QDAY TAYLOR Administration Magnesium Hydroxide 30 ml 04/12/20 15:39 Magnesium Hydroxide (Mom) Oral Liqd Udc PO Q4H PRN Constipation Metoclopramide HCl 10 mg 04/12/20 15:39 Metoclopramide 10 Mg Tab PO Q6H PRN Nausea And Vomiting Ondansetron HCl 4 mg 04/12/20 15:39 Ondansetron 4 Mg/2 Ml Inj IV Q8H PRN Nausea And Vomiting Promethazine HCl 25 mg 04/12/20 15:39 Promethazine 25 Mg Rect Supp [place] Q6H PRN Nausea And Vomiting Sodium Chloride 10 ml 04/12/20 15:39 Sodium Chloride 0.9% 10 Ml Flush Syringe IV PRN PRN LINE FLUSH Nutrition/Malnutrition Assess - Dietary Evaluation Nutrition/Malnutrition Findings: Nutrition Notes Start: 04/13/20 09:42 Freq: Status: Active Protocol: Document 04/13/20 09:43 AT (Rec: 04/13/20 09:46 AT [id number]) Co-Sign 04/13/20 09:43 Nutrition Notes Need for Assessment generated from: director of people,MST Current Diagnosis Stroke,Hyperlipidemia Other Pertinent Diagnosis Dysarthria, SOB Current Diet Cardiac/Consistent CHO Labs/Tests Na 130 BG 131 Pertinent Medications Reviewed Height 5 ft 8 in Weight 102.8 kg [place] Body Weight (kg) 70.00 BMI 34.4 Weight Status Obese Subjective/Other Information Screen for malnutrition. Burn Absent Trauma Absent
[2020-04-14 05:37] LABS: Chol/HDL Ratio 2.91 %
[2020-04-14] MEDS: ACETAMINOPHEN 325 MG TAB PO PRN ×3 (07:27→22:41)
[2020-04-14] MEDS: CLOPIDOGREL 75 MG TAB PO SCH (09:03)
[2020-04-14] MEDS: ASPIRIN 325 MG TAB PO SCH (09:03)
--- NOTE | 2020-04-14 10:51 | Progress Note ---
Assessment and Plan Assessment and plan: Acute CVA. Hypertension. Hyperlipidemia. Obesity 04/14/2020. CTA of the head and CTA of head and neck negative for infarct or thrombus. Echocardiogram with bubble study pending MRI pending. PT/OT colin figueroa. Continue aspirin and Plavix (21 days). Continue statin. Continue antihypertensive medications History Interval history: No new issues overnight. Hospitalist Physical - Constitutional Vitals: Temp Pulse Resp BP Pulse Ox 97.7 F 81 18 133/86 96 04/14/20 08:20 04/14/20 08:20 04/14/20 08:20 04/14/20 08:20 04/14/20 08:20 General appearance: Present: mild distress - EENT Eyes: Present: PERRL, EOM intact ENT: hearing intact, clear oral mucosa, dentition normal - Neck Neck: Present: supple, normal ROM - Respiratory Respiratory effort: normal Respiratory: bilateral: CTA - Cardiovascular Rhythm: regular Heart Sounds: Present: S1 & S2. Absent: gallop, rub - Extremities Extremities: no ischemia, No edema, Full ROM - Abdominal General gastrointestinal: soft, non-tender, non-distended, normal bowel sounds - Integumentary Integumentary: Present: clear, warm, dry - Neurologic Neurologic: CNII-XII intact, moves all extremities HEART Score - HEART Score Troponin: Troponin T < 0.010 ng/mL (0.00-0.029) 04/12/20 14:47 Results - Labs CBC & Chem 7: 04/12/20 14:47 04/12/20 14:47 Labs: Laboratory Last Values WBC 7.6 K/mm3 (4.5-11.0) 04/12/20 14:47 RBC 4.35 M/mm3 (3.65-5.03) 04/12/20 14:47 Hgb 14.5 gm/dl (11.8-15.2) 04/12/20 14:47 Hct 40.3 % (35.5-45.6) 04/12/20 14:47 MCV 93 fl (84-94) 04/12/20 14:47 MCH 33 pg (28-32) H 04/12/20 14:47 MCHC 36 % (32-34) H 04/12/20 14:47 RDW 12.9 % (13.2-15.2) L 04/12/20 14:47 Plt Count 198 K/mm3 (140-440) 04/12/20 14:47 Lymph % (Auto) 19.0 % (13.4-35.0) 04/12/20 14:47 [place] % (Auto) 7.6 % (0.0-7.3) H 04/12/20 14:47 Eos % (Auto) 1.3 % (0.0-4.3) 04/12/20 14:47 Baso % (Auto) 0.7 % (0.0-1.8) 04/12/20 14:47 Lymph # (Auto) 1.4 K/mm3 (1.2-5.4) 04/12/20 14:47 [place] # (Auto) 0.6 K/mm3 (0.0-0.8) 04/12/20 14:47 Eos # (Auto) 0.1 K/mm3 (0.0-0.4) 04/12/20 14:47 Baso # (Auto) 0.1 K/mm3 (0.0-0.1) 04/12/20 14:47 Seg Neutrophils % 71.4 % (40.0-70.0) H 04/12/20 14:47 Seg Neutrophils # 5.4 K/mm3 (1.8-7.7) 04/12/20 14:47 PT 13.3 Sec. (12.2-14.9) 04/12/20 14:47 INR 1.02 (0.87-1.13) 04/12/20 14:47 APTT 29.5 Sec. (24.2-36.6) 04/12/20 14:47 Thrombin Time 17.7 Sec. (15.1-19.6) 04/12/20 14:47 Sodium 130 mmol/L (137-145) L 04/12/20 14:47 Potassium 3.8 mmol/L (3.6-5.0) 04/12/20 14:47 Chloride 96.5 mmol/L (98-107) L 04/12/20 14:47 Carbon Dioxide 26 mmol/L (22-30) 04/12/20 14:47 Anion Gap 11 mmol/L 04/12/20 14:47 BUN 16 mg/dL (9-20) 04/12/20 14:47 Creatinine 0.8 mg/dL (0.8-1.3) 04/12/20 14:47 Estimated GFR > 60 ml/min 04/12/20 14:47 BUN/Creatinine Ratio 20 % 04/12/20 14:47 Glucose 131 mg/dL (75-100) H 04/12/20 14:47 Hemoglobin A1c 5.4 % (4-6) 04/14/20 04:50 Calcium 8.9 mg/dL (8.4-10.2) 04/12/20 14:47 Troponin T < 0.010 ng/mL (0.00-0.029) 04/12/20 14:47 Triglycerides 124 mg/dL (2-149) 04/14/20 04:50 Cholesterol 108 mg/dL (50-199) 04/14/20 04:50 LDL Cholesterol Direct 61 mg/dL (50-130) 04/14/20 04:50 HDL Cholesterol 37 mg/dL (40-59) L 04/14/20 04:50 Cholesterol/HDL Ratio 2.91 % 04/14/20 04:50 Nasal Screen MRSA (PCR) Negative (Negative) 04/13/20 03:38 King/IV: Voiding Method Urinal Active Medications - Current Medications Current Medications: Generic Name Dose Route Start Last Admin Trade Name Freq PRN Reason Stop Dose Admin Acetaminophen 650 mg 04/12/20 15:39 04/14/20 07:27 Acetaminophen 325 Mg Tab PO 650 mg Q4H PRN Administration Pain, Mild (1-3) Albuterol 2.5 mg 04/12/20 15:39 Albuterol 2.5 Mg/3 Ml Nebu IH Q3HRT PRN Shortness Of Breath Aspirin 325 mg 04/13/20 10:00 04/14/20 09:03 Aspirin 325 Mg Tab PO 325 mg QDAY TAYLOR Administration Atorvastatin Calcium 80 mg 04/13/20 22:00 04/13/20 21:26 Atorvastatin 40 Mg Tab PO 80 mg QHS TAYLOR Administration Bisacodyl 10 mg 04/12/20 15:39 Bisacodyl 10 Mg Rect Supp [place] QDAY PRN Constipation Bisacodyl 10 mg 04/14/20 10:00 04/14/20 10:01 Bisacodyl 5 Mg Tab PO 10 mg QDAY PRN Administration Constipation Clopidogrel Bisulfate 75 mg 04/13/20 10:00 04/14/20 09:03 Clopidogrel 75 Mg Tab PO 75 mg QDAY TAYLOR Administration Magnesium Hydroxide 30 ml 04/12/20 15:39 Magnesium Hydroxide (Mom) Oral Liqd Udc PO Q4H PRN Constipation Metoclopramide HCl 10 mg 04/12/20 15:39 Metoclopramide 10 Mg Tab PO Q6H PRN Nausea And Vomiting Ondansetron HCl 4 mg 04/12/20 15:39 Ondansetron 4 Mg/2 Ml Inj IV Q8H PRN Nausea And Vomiting Promethazine HCl 25 mg 04/12/20 15:39 Promethazine 25 Mg Rect Supp [place] Q6H PRN Nausea And Vomiting Sodium Chloride 10 ml 04/12/20 15:39 Sodium Chloride 0.9% 10 Ml Flush Syringe IV PRN PRN LINE FLUSH Nutrition/Malnutrition Assess - Dietary Evaluation Nutrition/Malnutrition Findings: Nutrition Notes Start: 04/13/20 09:42 Freq: Status: Active Protocol: Document 04/13/20 09:43 AT (Rec: 04/13/20 09:46 AT [id number]) Co-Sign 04/13/20 09:43 MK Nutrition Notes Need for Assessment generated from: franchise specialist,MST Initial or Follow up Assessment Current Diagnosis Stroke,Hyperlipidemia Other Pertinent Diagnosis Dysarthria, SOB Current Diet Cardiac/Consistent CHO Labs/Tests Na 130 BG 131 Pertinent Medications Reviewed Height 5 ft 8 in Weight 102.8 kg Usual Body Weight 102.8 kg [place] Body Weight (kg) 70.00 BMI 34.4 Intake Prior to Admission Excellent Weight Status Obese Subjective/Other Information Screen for malnutrition. Observed no physical signs of malnutrition. 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 Pt states that he ate 60% of breakfast and would've consumed more if he was not interrupted this morning. INSTALLATION TECH evaluation recommended as pt reports slow swallowing and coughing with eating; RN notified. Pt denies need for texture modification. Pt reports no hx of Diabetes, but BG appears elevated. 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 No Is Patient Ambulatory and/or Out of Bed No REE-([facility]-confined to bed) 2173.620 Kcal/Kg value to use for calculation 18 Approximate Energy Requirements Using 1850 kcal/Kg Calculation Used for Recommendations Kcal/kg Additional Notes PRO needs: 69-86 g (0.8-1 g/kg AdBW 86kg) Fluid needs: 1 mL/kcal or per MD Nutrition Intervention Change Diet Order: Continue Current or per MD Goal #1 Meet at least 75% of estimated energy and protein needs via diet Anticipated Discharge Needs: Unable to determine at this time Follow-Up By: 04/14/20 Additional Comments F/U for intakes, ONS needs, INSTALLATION TECH evaluation
--- NOTE | 2020-04-14 18:37 | Consultation ---
History of Present Illness Consult date: 04/14/20 Reason for Consult: CVA Chief complaint: Left-sided weakness History of present illness: 59 yo male with hld, stroke w/ residual left-sided weakness who presents with worsening weakness and numbness of the left arm/leg with worsening gait and slurring of speech on 04/11/20. He notes no acute headache, chest pain/pressure, palpitations, or loss or change of consciousness. Past History Past Medical History: hyperlipidemia, stroke Past Surgical History: No surgical history, Other (Reviewed) Social history: single. denies: smoking, alcohol abuse, prescription drug abuse Family history: diabetes, hypertension Medications and Allergies Allergies Allergy/AdvReac Type Severity Reaction Status Date / Time clonidine AdvReac Unknown Verified 04/12/20 14:54 codeine AdvReac Unknown Verified 04/12/20 14:54 Penicillins AdvReac Unknown Verified 04/12/20 14:54 Home Medications Medication Instructions Recorded Confirmed Last Taken Type Ibuprofen [Motrin] 800 mg PO BID PRN 04/14/20 04/14/20 Unknown History Lamisil At 1% CREAM 1 applic TRANSDERMA DAILY 04/14/20 04/14/20 Unknown History Lisinopril [Zestril TAB] 15 mg PO QDAY 04/14/20 04/14/20 2 Days Ago History ~04/12/20 Terbinafine (Nf) [LamiSIL] 250 mg PO QDAY 04/14/20 04/14/20 Unknown History hydroCHLOROthiazide [HCTZ] 25 mg PO QDAY 04/14/20 04/14/20 2 Days Ago History ~04/12/20 Active Meds: Active Medications Acetaminophen (Acetaminophen 325 Mg Tab) 650 mg PO Q4H PRN PRN Reason: Pain, Mild (1-3) Last Admin: 04/14/20 15:15 Dose: 650 mg Documented by: Albuterol (Albuterol 2.5 Mg/3 Ml Nebu) 2.5 mg IH Q3HRT PRN PRN Reason: Shortness Of Breath Aspirin (Aspirin 325 Mg Tab) 325 mg PO QDAY [facility] Last Admin: 04/14/20 09:03 Dose: 325 mg Documented by: Atorvastatin Calcium (Atorvastatin 40 Mg Tab) 80 mg PO QHS [facility] Last Admin: 04/13/20 21:26 Dose: 80 mg Documented by: Bisacodyl (Bisacodyl 10 Mg Rect Supp) 10 mg TN QDAY PRN PRN Reason: Constipation Bisacodyl (Bisacodyl 5 Mg Tab) 10 mg PO QDAY PRN PRN Reason: Constipation Last Admin: 04/14/20 10:01 Dose: 10 mg Documented by: Clopidogrel Bisulfate (Clopidogrel 75 Mg Tab) 75 mg PO QDAY TAYLOR Last Admin: 04/14/20 09:03 Dose: 75 mg Documented by: Magnesium Hydroxide (Magnesium Hydroxide (Mom) Oral Liqd Udc) 30 ml PO Q4H PRN PRN Reason: Constipation Metoclopramide HCl (Metoclopramide 10 Mg Tab) 10 mg PO Q6H PRN PRN Reason: Nausea And Vomiting Ondansetron HCl (Ondansetron 4 Mg/2 Ml Inj) 4 mg IV Q8H PRN PRN Reason: Nausea And Vomiting Promethazine HCl (Promethazine 25 Mg Rect Supp) 25 mg [place] Q6H PRN PRN Reason: Nausea And Vomiting Sodium Chloride (Sodium Chloride 0.9% 10 Ml Flush Syringe) 10 ml IV PRN PRN PRN Reason: LINE FLUSH Review of Systems All systems: negative Physical Examination - Vital Signs Vital Signs: Vital Signs Pulse Resp BP Pulse Ox 111 H 24 143/81 100 04/12/20 14:53 04/12/20 14:53 04/12/20 14:53 04/12/20 14:53 - Physical Exam Narrative exam: Gen: nad, well-nourished; Head: normocephalic; Eyes: no gaze deviation; no ptosis; ENT: normal vocalization; CVS: warm and well-perfused; Pulm: no respiratory distress; GI: appears non-distended; Ext: no cyanosis at distal extremities; Skin: no acute hives at distal extremities; Heme: no pathologic bruising at distal extremities; left leg cuffed to bed rail; Neuro: alert, oriented to name, age, month, year, surroundings, mild dysarthria, no aphasia, CN 2 - PERRL, visual laws grossly intact, CN 3, 4, 6 - EOMI, CN 5 - facial sensation decreased on left to light touch, CN 7 - facial movement decreased slightly on left, CN 8 - hearing grossly intact, CN 9, 10 - uvula midline, CN 11 - symmetric shoulder movement, CN 12 - tongue midline; Motor - at least 4/5 at right exts and at least 0/5 at left arm and 1/5 at proxmal LLE and 2-/5 at distal LLE; Sensory - light touch decreased at left arm/leg, Cerebellar - fnf /hts w/ right exts only, limited w/ left exts secondary to weakness, Gait - deferred secondary to fall risk; NIHSS (1a.) Level of Consciousness:0 (1b.) LOC Questions:0 (1c.) LOC Commands:0 (2.) Best Gaze:0 (3.) Visual:0 (4.) Facial Palsy:1 (5a.) Motor Arm, Left:4 (5b.) Motor Arm, Right:0 (6a.) Motor Leg, Left:3 (6b.) Motor Leg, Right:1 (7.) Limb Ataxia:0 (8.) Sensory:1 (9.) Best Language:0 (10.) Dysarthria:1 (11.) Extinction and Inattention:0 NIHSS Total Score: 11 Results - Laboratory Findings CBC and BMP: 04/12/20 14:47 04/12/20 14:47 Abnormal Lab Findings: Abnormal Labs 04/12/20 04/12/20 04/14/20 14:47 14:47 04:50 MCH 33 H MCHC 36 H RDW 12.9 L [place] % (Auto) 7.6 H Seg Neutrophils % 71.4 H Sodium 130 L Chloride 96.5 L Glucose 131 H HDL Cholesterol 37 L Assessment and Plan 59 yo male with hld, stroke w/ residual left sided weakness who presents with an acute right pontine lacunar stroke. 1. 1. Acute Ischemic Stroke (lacunar stroke secondary to ICADx: ASA 325 mg PO qday, Plavix 75 mg PO qday x 90 days, 1st dose on 04/18/20; unremarkable TTEcho, confirm TSH, telemetry, aim for normotension. Statin therapy for a goal LDL of 70, when patient passes swallow evaluation. PT/OT/ST/Swallow evaluation. Long- term risk-factor modification, including a strict diet/exercise regimen for secondary stroke prophylaxis. 2. Hyperlipidemia - goal LDL of 70 w/ statin therapy if no contraindications. 3. Dysarthria / Dysphagia - st / swallow evaluation/monitoring. 4. Left-sided weakness - pt/ot evaluation/monitoring. 5. Unsteady Gait - pt/ot evaluation/monitoring.
[2020-04-15] MEDS: CLOPIDOGREL 75 MG TAB PO SCH (09:31)
[2020-04-15] MEDS: ASPIRIN 325 MG TAB PO SCH (09:31)
[2020-04-15] MEDS: ACETAMINOPHEN 325 MG TAB PO PRN ×3 (09:36→21:06)
--- NOTE | 2020-04-15 09:36 | Progress Note ---
Assessment and Plan Assessment and plan: Acute right pontine CVA. Hypertension. Hyperlipidemia. Obesity 04/14/2020. CTA of the head and CTA of head and neck negative for infarct or thrombus. Echocardiogram with bubble study pending MRI pending. PT/OT evaluation. Continue aspirin and Plavix (21 days). Continue statin. Continue antihypertensive medications. 04/15/2020. MRI revealed acute right-sided pontine infarction involving most of the mid samuel and a remote small deep infarction in the right thalamus. Neurology recommends aspirin 325 mg p.o. daily and Plavix 75 mg for 90 days. Continue statin therapy as well. Physical therapy evaluation recommends subacute rehab. Case management consulted History Interval history: No new issues overnight. Hospitalist Physical - Constitutional Vitals: Temp Pulse Resp BP Pulse Ox 98.6 F 79 20 128/87 95 04/15/20 08:08 04/15/20 08:08 04/15/20 08:08 04/15/20 08:08 04/15/20 08:08 General appearance: Present: mild distress - EENT Eyes: Present: PERRL, EOM intact ENT: hearing intact, clear oral mucosa, dentition normal - Neck Neck: Present: supple, normal ROM - Respiratory Respiratory effort: normal Respiratory: bilateral: CTA - Cardiovascular Rhythm: regular Heart Sounds: Present: S1 & S2. Absent: gallop, rub - Extremities Extremities: no ischemia, No edema, Full ROM - Abdominal General gastrointestinal: soft, non-tender, non-distended, normal bowel sounds - Integumentary Integumentary: Present: clear, warm, dry - Neurologic Neurologic: CNII-XII intact, moves all extremities HEART Score - HEART Score Troponin: Troponin T < 0.010 ng/mL (0.00-0.029) 04/12/20 14:47 Results - Labs CBC & Chem 7: 04/12/20 14:47 04/12/20 14:47 Labs: Laboratory Last Values WBC 7.6 K/mm3 (4.5-11.0) 04/12/20 14:47 RBC 4.35 M/mm3 (3.65-5.03) 04/12/20 14:47 Hgb 14.5 gm/dl (11.8-15.2) 04/12/20 14:47 Hct 40.3 % (35.5-45.6) 04/12/20 14:47 MCV 93 fl (84-94) 04/12/20 14:47 MCH 33 pg (28-32) H 04/12/20 14:47 MCHC 36 % (32-34) H 04/12/20 14:47 RDW 12.9 % (13.2-15.2) L 04/12/20 14:47 Plt Count 198 K/mm3 (140-440) 04/12/20 14:47 Lymph % (Auto) 19.0 % (13.4-35.0) 04/12/20 14:47 [place] % (Auto) 7.6 % (0.0-7.3) H 04/12/20 14:47 Eos % (Auto) 1.3 % (0.0-4.3) 04/12/20 14:47 Baso % (Auto) 0.7 % (0.0-1.8) 04/12/20 14:47 Lymph # (Auto) 1.4 K/mm3 (1.2-5.4) 04/12/20 14:47 [place] # (Auto) 0.6 K/mm3 (0.0-0.8) 04/12/20 14:47 Eos # (Auto) 0.1 K/mm3 (0.0-0.4) 04/12/20 14:47 Baso # (Auto) 0.1 K/mm3 (0.0-0.1) 04/12/20 14:47 Seg Neutrophils % 71.4 % (40.0-70.0) H 04/12/20 14:47 Seg Neutrophils # 5.4 K/mm3 (1.8-7.7) 04/12/20 14:47 PT 13.3 Sec. (12.2-14.9) 04/12/20 14:47 INR 1.02 (0.87-1.13) 04/12/20 14:47 APTT 29.5 Sec. (24.2-36.6) 04/12/20 14:47 Thrombin Time 17.7 Sec. (15.1-19.6) 04/12/20 14:47 Sodium 130 mmol/L (137-145) L 04/12/20 14:47 Potassium 3.8 mmol/L (3.6-5.0) 04/12/20 14:47 Chloride 96.5 mmol/L (98-107) L 04/12/20 14:47 Carbon Dioxide 26 mmol/L (22-30) 04/12/20 14:47 Anion Gap 11 mmol/L 04/12/20 14:47 BUN 16 mg/dL (9-20) 04/12/20 14:47 Creatinine 0.8 mg/dL (0.8-1.3) 04/12/20 14:47 Estimated GFR > 60 ml/min 04/12/20 14:47 BUN/Creatinine Ratio 20 % 04/12/20 14:47 Glucose 131 mg/dL (75-100) H 04/12/20 14:47 Hemoglobin A1c 5.4 % (4-6) 04/14/20 04:50 Calcium 8.9 mg/dL (8.4-10.2) 04/12/20 14:47 Troponin T < 0.010 ng/mL (0.00-0.029) 04/12/20 14:47 Triglycerides 124 mg/dL (2-149) 04/14/20 04:50 Cholesterol 108 mg/dL (50-199) 04/14/20 04:50 LDL Cholesterol Direct 61 mg/dL (50-130) 04/14/20 04:50 HDL Cholesterol 37 mg/dL (40-59) L 04/14/20 04:50 Cholesterol/HDL Ratio 2.91 % 04/14/20 04:50 Nasal Screen MRSA (PCR) Negative (Negative) 04/13/20 03:38 King/IV: Voiding Method Urinal Active Medications - Current Medications Current Medications: Generic Name Dose Route Start Last Admin Trade Name Freq PRN Reason Stop Dose Admin Acetaminophen 650 mg 04/12/20 15:39 04/14/20 22:41 Acetaminophen 325 Mg Tab PO 650 mg Q4H PRN Administration Pain, Mild (1-3) Albuterol 2.5 mg 04/12/20 15:39 Albuterol 2.5 Mg/3 Ml Nebu IH Q3HRT PRN Shortness Of Breath Aspirin 325 mg 04/13/20 10:00 04/15/20 09:31 Aspirin 325 Mg Tab PO 325 mg QDAY TAYLOR Administration Atorvastatin Calcium 80 mg 04/13/20 22:00 04/14/20 21:19 Atorvastatin 40 Mg Tab PO 80 mg QHS TAYLOR Administration Bisacodyl 10 mg 04/12/20 15:39 Bisacodyl 10 Mg Rect Supp [place] QDAY PRN Constipation Bisacodyl 10 mg 04/14/20 10:00 04/14/20 10:01 Bisacodyl 5 Mg Tab PO 10 mg QDAY PRN Administration Constipation Clopidogrel Bisulfate 75 mg 04/13/20 10:00 04/15/20 09:31 Clopidogrel 75 Mg Tab PO 75 mg QDAY TAYLOR Administration Magnesium Hydroxide 30 ml 04/12/20 15:39 Magnesium Hydroxide (Mom) Oral Liqd Udc PO Q4H PRN Constipation Metoclopramide HCl 10 mg 04/12/20 15:39 Metoclopramide 10 Mg Tab PO Q6H PRN Nausea And Vomiting Ondansetron HCl 4 mg 04/12/20 15:39 Ondansetron 4 Mg/2 Ml Inj IV Q8H PRN Nausea And Vomiting Promethazine HCl 25 mg 04/12/20 15:39 Promethazine 25 Mg Rect Supp TN Q6H PRN Nausea And Vomiting Sodium Chloride 10 ml 04/12/20 15:39 04/15/20 09:31 Sodium Chloride 0.9% 10 Ml Flush Syringe IV 10 ml PRN PRN Administration LINE FLUSH Nutrition/Malnutrition Assess - Dietary Evaluation Nutrition/Malnutrition Findings: Nutrition Notes Start: 04/13/20 09:42 Freq: Status: Active Protocol: Document 04/14/20 14:11 CW (Rec: 04/14/20 14:21 [email or web address]) Nutrition Notes Initial or Follow up Reassessment Current Diagnosis Stroke,Hyperlipidemia Other Pertinent Diagnosis Dysarthria, SOB Current Diet Cardiac diet Labs/Tests HgbA1c 5.4 Pertinent Medications Ducolax Height 5 ft 8 in Weight 98.7 kg [place] Body Weight (kg) 70.00 BMI 33.0 Intake Prior to Admission Excellent Weight change and time frame Weight change noted - weight change likely d/t bed scale error Weight Status Obese Subjective/Other Information F/U for 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 Pt currently eating meal and reports good appetite. Decreased intake d/t meal preferences per pt. Meal preferences noted. Build up of applesauce d/t dislike. Per SENIOR ELECTRONICS ENGINEER pt does not need diet modification. 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 No Is Patient Ambulatory and/or Out of Bed No REE-([facility]-confined to bed) 2124.468 Kcal/Kg value to use for calculation 18 Approximate Energy Requirements Using 1777 kcal/Kg Calculation Used for Recommendations Kcal/kg Additional Notes PRO needs: 69-86 g (0.8-1 g/kg AdBW 86kg) Fluid needs: 1 mL/kcal or per MD Nutrition Intervention Change Diet Order: Continue Cardiac Consistent Carbohydrate Diet Goal #1 Meet at least 75% of estimated energy and protein needs via diet Anticipated Discharge Needs: Cardiac Consistent Carbohydrate diet Follow-Up By: 04/18/20 Additional Comments F/U for PO intake, ONS needs, Weight stabilzation
--- NOTE | 2020-04-16 08:47 | Progress Note ---
Assessment and Plan Assessment and plan: Acute right pontine CVA. Hypertension. Hyperlipidemia. Obesity 04/14/2020. CTA of the head and CTA of head and neck negative for infarct or thrombus. Echocardiogram with bubble study pending MRI pending. PT/OT evaluation. Continue aspirin and Plavix (21 days). Continue statin. Continue antihypertensive medications. 04/15/2020. MRI revealed acute right-sided pontine infarction involving most of the mid samuel and a remote small deep infarction in the right thalamus. Neurology recommends aspirin 325 mg p.o. daily and Plavix 75 mg for 90 days. Continue statin therapy as well. Physical therapy evaluation recommends subacute rehab. Case management consulted 04/16/2020. Await subacute rehab placement. Continue aspirin, Plavix (90 days total) and statin. PT/OT/ST History Interval history: No new issues overnight. Hospitalist Physical - Constitutional Vitals: Temp Pulse Resp BP Pulse Ox 98.6 F 74 20 140/91 92 04/16/20 08:27 04/16/20 08:27 04/16/20 08:27 04/16/20 08:27 04/16/20 08:27 General appearance: Present: mild distress - EENT Eyes: Present: PERRL, EOM intact ENT: hearing intact, clear oral mucosa, dentition normal - Neck Neck: Present: supple, normal ROM - Respiratory Respiratory effort: normal Respiratory: bilateral: CTA - Cardiovascular Rhythm: regular Heart Sounds: Present: S1 & S2. Absent: gallop, rub - Extremities Extremities: no ischemia, No edema, Full ROM - Abdominal General gastrointestinal: soft, non-tender, non-distended, normal bowel sounds - Integumentary Integumentary: Present: clear, warm, dry - Neurologic Neurologic: CNII-XII intact, moves all extremities HEART Score - HEART Score Troponin: Troponin T < 0.010 ng/mL (0.00-0.029) 04/12/20 14:47 Results - Labs CBC & Chem 7: 04/12/20 14:47 04/12/20 14:47 Labs: Laboratory Last Values WBC 7.6 K/mm3 (4.5-11.0) 04/12/20 14:47 RBC 4.35 M/mm3 (3.65-5.03) 04/12/20 14:47 Hgb 14.5 gm/dl (11.8-15.2) 04/12/20 14:47 Hct 40.3 % (35.5-45.6) 04/12/20 14:47 MCV 93 fl (84-94) 04/12/20 14:47 MCH 33 pg (28-32) H 04/12/20 14:47 MCHC 36 % (32-34) H 04/12/20 14:47 RDW 12.9 % (13.2-15.2) L 04/12/20 14:47 Plt Count 198 K/mm3 (140-440) 04/12/20 14:47 Lymph % (Auto) 19.0 % (13.4-35.0) 04/12/20 14:47 [place] % (Auto) 7.6 % (0.0-7.3) H 04/12/20 14:47 Eos % (Auto) 1.3 % (0.0-4.3) 04/12/20 14:47 Baso % (Auto) 0.7 % (0.0-1.8) 04/12/20 14:47 Lymph # (Auto) 1.4 K/mm3 (1.2-5.4) 04/12/20 14:47 [place] # (Auto) 0.6 K/mm3 (0.0-0.8) 04/12/20 14:47 Eos # (Auto) 0.1 K/mm3 (0.0-0.4) 04/12/20 14:47 Baso # (Auto) 0.1 K/mm3 (0.0-0.1) 04/12/20 14:47 Seg Neutrophils % 71.4 % (40.0-70.0) H 04/12/20 14:47 Seg Neutrophils # 5.4 K/mm3 (1.8-7.7) 04/12/20 14:47 PT 13.3 Sec. (12.2-14.9) 04/12/20 14:47 INR 1.02 (0.87-1.13) 04/12/20 14:47 APTT 29.5 Sec. (24.2-36.6) 04/12/20 14:47 Thrombin Time 17.7 Sec. (15.1-19.6) 04/12/20 14:47 Sodium 130 mmol/L (137-145) L 04/12/20 14:47 Potassium 3.8 mmol/L (3.6-5.0) 04/12/20 14:47 Chloride 96.5 mmol/L (98-107) L 04/12/20 14:47 Carbon Dioxide 26 mmol/L (22-30) 04/12/20 14:47 Anion Gap 11 mmol/L 04/12/20 14:47 BUN 16 mg/dL (9-20) 04/12/20 14:47 Creatinine 0.8 mg/dL (0.8-1.3) 04/12/20 14:47 Estimated GFR > 60 ml/min 04/12/20 14:47 BUN/Creatinine Ratio 20 % 04/12/20 14:47 Glucose 131 mg/dL (75-100) H 04/12/20 14:47 Hemoglobin A1c 5.4 % (4-6) 04/14/20 04:50 Calcium 8.9 mg/dL (8.4-10.2) 04/12/20 14:47 Troponin T < 0.010 ng/mL (0.00-0.029) 04/12/20 14:47 Triglycerides 124 mg/dL (2-149) 04/14/20 04:50 Cholesterol 108 mg/dL (50-199) 04/14/20 04:50 LDL Cholesterol Direct 61 mg/dL (50-130) 04/14/20 04:50 HDL Cholesterol 37 mg/dL (40-59) L 04/14/20 04:50 Cholesterol/HDL Ratio 2.91 % 04/14/20 04:50 Nasal Screen MRSA (PCR) Negative (Negative) 04/13/20 03:38 King/IV: Voiding Method Urinal Active Medications - Current Medications Current Medications: Generic Name Dose Route Start Last Admin Trade Name Freq PRN Reason Stop Dose Admin Acetaminophen 650 mg 04/12/20 15:39 04/15/20 21:06 Acetaminophen 325 Mg Tab PO 650 mg Q4H PRN Administration Pain, Mild (1-3) Albuterol 2.5 mg 04/12/20 15:39 Albuterol 2.5 Mg/3 Ml Nebu IH Q3HRT PRN Shortness Of Breath Aspirin 325 mg 04/13/20 10:00 04/15/20 09:31 Aspirin 325 Mg Tab PO 325 mg QDAY TAYLOR Administration Atorvastatin Calcium 80 mg 04/13/20 22:00 04/15/20 21:02 Atorvastatin 40 Mg Tab PO 80 mg QHS TAYLOR Administration Bisacodyl 10 mg 04/12/20 15:39 Bisacodyl 10 Mg Rect Supp [place] QDAY PRN Constipation Bisacodyl 10 mg 04/14/20 10:00 04/14/20 10:01 Bisacodyl 5 Mg Tab PO 10 mg QDAY PRN Administration Constipation Clopidogrel Bisulfate 75 mg 04/13/20 10:00 04/15/20 09:31 Clopidogrel 75 Mg Tab PO 75 mg QDAY TAYLOR Administration Magnesium Hydroxide 30 ml 04/12/20 15:39 Magnesium Hydroxide (Mom) Oral Liqd Udc PO Q4H PRN Constipation Metoclopramide HCl 10 mg 04/12/20 15:39 Metoclopramide 10 Mg Tab PO Q6H PRN Nausea And Vomiting Ondansetron HCl 4 mg 04/12/20 15:39 Ondansetron 4 Mg/2 Ml Inj IV Q8H PRN Nausea And Vomiting Promethazine HCl 25 mg 04/12/20 15:39 Promethazine 25 Mg Rect Supp [place] Q6H PRN Nausea And Vomiting Sodium Chloride 10 ml 04/12/20 15:39 04/15/20 09:31 Sodium Chloride 0.9% 10 Ml Flush Syringe IV 10 ml PRN PRN Administration LINE FLUSH Nutrition/Malnutrition Assess - Dietary Evaluation Nutrition/Malnutrition Findings: Nutrition Notes Start: 04/13/20 09:42 Freq: Status: Active Protocol: Document 04/14/20 14:11 CW (Rec: 04/14/20 14:21 [email or web address]) Nutrition Notes Initial or Follow up Reassessment Current Diagnosis Stroke,Hyperlipidemia Other Pertinent Diagnosis Dysarthria, SOB Current Diet Cardiac diet Labs/Tests HgbA1c 5.4 Pertinent Medications Ducolax Height 5 ft 8 in Weight 98.7 kg [place] Body Weight (kg) 70.00 BMI 33.0 Intake Prior to Admission Excellent Weight change and time frame Weight change noted - weight change likely d/t bed scale error Weight Status Obese Subjective/Other Information 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 Pt currently eating meal and reports good appetite. Decreased intake d/t meal preferences per pt. Meal preferences noted. Build up of applesauce d/t dislike. Per AUTOMATION TENDER pt does not need diet modification. Burn Absent Trauma Absent GI Symptoms None Food Allergy No Cultural/Ethnic/Latter-Day Belief Does not like apple juice, applesauce, spinach Current % PO Fair (50-74%) Minimum of two criteria No Reduced General Ledger Accountant Strength N/A (non-severe) #2 Nutrition Diagnosis Inadequate oral intake Etiology dislike of meals provided As Evidenced by Signs and Symptoms PO intake of 50% of meal #1 Nutrition Diagnosis Predicted suboptimal energy intake As Evidenced by Signs and Symptoms AUTOMATION TENDER reports intact swallowing function; PO intake is 50% of lunch Diagnosis Progress(for reassessment Resolved documentation) Is patient on ventilator? No Is Patient Ambulatory and/or Out of Bed No REE-([facility]-confined to bed) 2124.468 Kcal/Kg value to use for calculation 18 Approximate Energy Requirements Using 1777 kcal/Kg Calculation Used for Recommendations Kcal/kg Additional Notes PRO needs: 69-86 g (0.8-1 g/kg AdBW 86kg) Fluid needs: 1 mL/kcal or per MD Nutrition Intervention Change Diet Order: Continue Cardiac Consistent Carbohydrate Diet Goal #1 Meet at least 75% of estimated energy and protein needs via diet Anticipated Discharge Needs: Cardiac Consistent Carbohydrate diet Follow-Up By: 04/18/20 Additional Comments F/U for PO intake, ONS needs, Weight stabilzation
[2020-04-16] MEDS: ASPIRIN 325 MG TAB PO SCH (09:34)
[2020-04-16] MEDS: CLOPIDOGREL 75 MG TAB PO SCH (09:34)
[2020-04-16] MEDS: ACETAMINOPHEN 325 MG TAB PO PRN ×2 (09:35→21:36)
--- NOTE | 2020-04-17 08:25 | Progress Note ---
Assessment and Plan Assessment and plan: Acute right pontine CVA. Hypertension. Hyperlipidemia. Obesity 04/14/2020. CTA of the head and CTA of head and neck negative for infarct or thrombus. Echocardiogram with bubble study pending MRI pending. PT/OT evaluation. Continue aspirin and Plavix (21 days). Continue statin. Continue antihypertensive medications. 04/15/2020. MRI revealed acute right-sided pontine infarction involving most of the mid samuel and a remote small deep infarction in the right thalamus. Neurology recommends aspirin 325 mg p.o. daily and Plavix 75 mg for 90 days. Continue statin therapy as well. Physical therapy evaluation recommends subacute rehab. Case management consulted 04/16/2020. Await subacute rehab placement. Continue aspirin, Plavix (90 days total) and statin. PT/OT/ST 04/17/2020. MRI revealed acute right-sided pontine infarction involving most of the mid samuel and a remote small deep infarction in the right thalamus. Await subacute rehab placement. Continue aspirin, Plavix (90 days total) and statin. PT/OT/ST History Interval history: No new issues overnight. Hospitalist Physical - Constitutional Vitals: Temp Pulse Resp BP Pulse Ox 97.7 F 82 20 142/97 95 04/17/20 08:08 04/17/20 08:08 04/17/20 05:11 04/17/20 08:08 04/17/20 08:08 General appearance: Present: no acute distress - EENT Eyes: Present: PERRL, EOM intact ENT: hearing intact, clear oral mucosa, dentition normal - Neck Neck: Present: supple, normal ROM - Respiratory Respiratory effort: normal Respiratory: bilateral: CTA - Cardiovascular Rhythm: regular Heart Sounds: Present: S1 & S2. Absent: gallop, rub - Extremities Extremities: no ischemia, No edema, Full ROM - Abdominal General gastrointestinal: soft, non-tender, non-distended, normal bowel sounds - Integumentary Integumentary: Present: clear, warm, dry - Neurologic Neurologic: CNII-XII intact, moves all extremities HEART Score - HEART Score Troponin: Troponin T < 0.010 ng/mL (0.00-0.029) 04/12/20 14:47 Results - Labs CBC & Chem 7: 04/12/20 14:47 04/12/20 14:47 Labs: Laboratory Last Values WBC 7.6 K/mm3 (4.5-11.0) 04/12/20 14:47 RBC 4.35 M/mm3 (3.65-5.03) 04/12/20 14:47 Hgb 14.5 gm/dl (11.8-15.2) 04/12/20 14:47 Hct 40.3 % (35.5-45.6) 04/12/20 14:47 MCV 93 fl (84-94) 04/12/20 14:47 MCH 33 pg (28-32) H 04/12/20 14:47 MCHC 36 % (32-34) H 04/12/20 14:47 RDW 12.9 % (13.2-15.2) L 04/12/20 14:47 Plt Count 198 K/mm3 (140-440) 04/12/20 14:47 Lymph % (Auto) 19.0 % (13.4-35.0) 04/12/20 14:47 [place] % (Auto) 7.6 % (0.0-7.3) H 04/12/20 14:47 Eos % (Auto) 1.3 % (0.0-4.3) 04/12/20 14:47 Baso % (Auto) 0.7 % (0.0-1.8) 04/12/20 14:47 Lymph # (Auto) 1.4 K/mm3 (1.2-5.4) 04/12/20 14:47 [place] # (Auto) 0.6 K/mm3 (0.0-0.8) 04/12/20 14:47 Eos # (Auto) 0.1 K/mm3 (0.0-0.4) 04/12/20 14:47 Baso # (Auto) 0.1 K/mm3 (0.0-0.1) 04/12/20 14:47 Seg Neutrophils % 71.4 % (40.0-70.0) H 04/12/20 14:47 Seg Neutrophils # 5.4 K/mm3 (1.8-7.7) 04/12/20 14:47 PT 13.3 Sec. (12.2-14.9) 04/12/20 14:47 INR 1.02 (0.87-1.13) 04/12/20 14:47 APTT 29.5 Sec. (24.2-36.6) 04/12/20 14:47 Thrombin Time 17.7 Sec. (15.1-19.6) 04/12/20 14:47 Sodium 130 mmol/L (137-145) L 04/12/20 14:47 Potassium 3.8 mmol/L (3.6-5.0) 04/12/20 14:47 Chloride 96.5 mmol/L (98-107) L 04/12/20 14:47 Carbon Dioxide 26 mmol/L (22-30) 04/12/20 14:47 Anion Gap 11 mmol/L 04/12/20 14:47 BUN 16 mg/dL (9-20) 04/12/20 14:47 Creatinine 0.8 mg/dL (0.8-1.3) 04/12/20 14:47 Estimated GFR > 60 ml/min 04/12/20 14:47 BUN/Creatinine Ratio 20 % 04/12/20 14:47 Glucose 131 mg/dL (75-100) H 04/12/20 14:47 Hemoglobin A1c 5.4 % (4-6) 04/14/20 04:50 Calcium 8.9 mg/dL (8.4-10.2) 04/12/20 14:47 Troponin T < 0.010 ng/mL (0.00-0.029) 04/12/20 14:47 Triglycerides 124 mg/dL (2-149) 04/14/20 04:50 Cholesterol 108 mg/dL (50-199) 04/14/20 04:50 LDL Cholesterol Direct 61 mg/dL (50-130) 04/14/20 04:50 HDL Cholesterol 37 mg/dL (40-59) L 04/14/20 04:50 Cholesterol/HDL Ratio 2.91 % 04/14/20 04:50 Nasal Screen MRSA (PCR) Negative (Negative) 04/13/20 03:38 King/IV: Voiding Method Urinal Active Medications - Current Medications Current Medications: Generic Name Dose Route Start Last Admin Trade Name Freq PRN Reason Stop Dose Admin Acetaminophen 650 mg 04/12/20 15:39 04/16/20 21:36 Acetaminophen 325 Mg Tab PO 650 mg Q4H PRN Administration Pain, Mild (1-3) Albuterol 2.5 mg 04/12/20 15:39 Albuterol 2.5 Mg/3 Ml Nebu IH Q3HRT PRN Shortness Of Breath Aspirin 325 mg 04/13/20 10:00 04/16/20 09:34 Aspirin 325 Mg Tab PO 325 mg QDAY TAYLOR Administration Atorvastatin Calcium 80 mg 04/13/20 22:00 04/16/20 21:34 Atorvastatin 40 Mg Tab PO 80 mg QHS TAYLOR Administration Bisacodyl 10 mg 04/12/20 15:39 Bisacodyl 10 Mg Rect Supp OR QDAY PRN Constipation Bisacodyl 10 mg 04/14/20 10:00 04/14/20 10:01 Bisacodyl 5 Mg Tab PO 10 mg QDAY PRN Administration Constipation Clopidogrel Bisulfate 75 mg 04/13/20 10:00 04/16/20 09:34 Clopidogrel 75 Mg Tab PO 75 mg QDAY TAYLOR Administration Magnesium Hydroxide 30 ml 04/12/20 15:39 Magnesium Hydroxide (Mom) Oral Liqd Udc PO Q4H PRN Constipation Metoclopramide HCl 10 mg 04/12/20 15:39 Metoclopramide 10 Mg Tab PO Q6H PRN Nausea And Vomiting Ondansetron HCl 4 mg 04/12/20 15:39 Ondansetron 4 Mg/2 Ml Inj IV Q8H PRN Nausea And Vomiting Promethazine HCl 25 mg 04/12/20 15:39 Promethazine 25 Mg Rect Supp OR Q6H PRN Nausea And Vomiting Sodium Chloride 10 ml 04/12/20 15:39 04/15/20 09:31 Sodium Chloride 0.9% 10 Ml Flush Syringe IV 10 ml PRN PRN Administration LINE FLUSH Nutrition/Malnutrition Assess - Dietary Evaluation Nutrition/Malnutrition Findings: Nutrition Notes Start: 04/13/20 09:42 Freq: Status: Active Protocol: Document 04/14/20 14:11 CW (Rec: 04/14/20 14:21 CW [id number]) Nutrition Notes Initial or Follow up Reassessment Current Diagnosis Stroke,Hyperlipidemia Other Pertinent Diagnosis Dysarthria, SOB Current Diet Cardiac diet Labs/Tests HgbA1c 5.4 Pertinent Medications Ducolax Height 5 ft 8 in Weight 98.7 kg [place] Body Weight (kg) 70.00 BMI 33.0 Intake Prior to Admission Excellent Weight change and time frame Weight change noted - weight change likely d/t bed scale error Weight Status Obese Subjective/Other Information F/U for intakes, 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 Pt currently eating meal and reports good appetite. Decreased intake d/t meal preferences per pt. Meal preferences noted. Build up of applesauce d/t dislike. Per GOVERNMENT RELATIONS MANAGER pt does not need diet modification. Burn Absent Trauma Absent GI Symptoms None Food Allergy No Cultural/Ethnic/Sabianist Belief Does not like apple juice, applesauce, spinach Current % PO Fair (50-74%) Minimum of two criteria No Reduced Travel Registered Nurse Nicu Strength N/A (non-severe) #2 Nutrition Diagnosis Inadequate oral intake Etiology dislike of meals provided As Evidenced by Signs and Symptoms PO intake of 50% of meal #1 Nutrition Diagnosis Predicted suboptimal energy intake As Evidenced by Signs and Symptoms GOVERNMENT RELATIONS MANAGER reports intact swallowing function; PO intake is 50% of lunch Diagnosis Progress(for reassessment Resolved documentation) Is patient on ventilator? No Is Patient Ambulatory and/or Out of Bed No REE-([facility]-confined to bed) 2124.468 Kcal/Kg value to use for calculation 18 Approximate Energy Requirements Using 1777 kcal/Kg Calculation Used for Recommendations Kcal/kg Additional Notes PRO needs: 69-86 g (0.8-1 g/kg AdBW 86kg) Fluid needs: 1 mL/kcal or per MD Nutrition Intervention Change Diet Order: Continue Cardiac Consistent Carbohydrate Diet Goal #1 Meet at least 75% of estimated energy and protein needs via diet Anticipated Discharge Needs: Cardiac Consistent Carbohydrate diet Follow-Up By: 04/18/20 Additional Comments F/U for PO intake, ONS needs, Weight stabilzation
[2020-04-17] MEDS: ASPIRIN 325 MG TAB PO SCH (10:08)
[2020-04-17] MEDS: CLOPIDOGREL 75 MG TAB PO SCH (10:08)
[2020-04-17] MEDS: ACETAMINOPHEN 325 MG TAB PO PRN ×2 (11:17→21:15)
[2020-04-18] MEDS: ACETAMINOPHEN 325 MG TAB PO PRN ×2 (02:50→09:25)
[2020-04-18 05:47] LABS: Basophils # (Auto) 0.1 K/mm3 (0.0-0.1); Basophils % (Auto) 0.5 % (0.0-1.8); Eosinophils # (Auto) 0.3 K/mm3 (0.0-0.4); Eosinophils % (Auto) 2.8 % (0.0-4.3); Hematocrit 49.4 % (35.5-45.6); Lymphocytes # (Auto) 1.9 K/mm3 (1.2-5.4); Lymphocytes % (Auto) 16.5 % (13.4-35.0); Mean Corpuscular HGB Conc 34 % (32-34); Mean Corpuscular Volume 93 fl (84-94); Monocytes % (Auto) 8.5 % (0.0-7.3); Platelet Count 242 K/mm3 (140-440); Red Cell Distribution Width 13.1 % (13.2-15.2)
[2020-04-18 06:03] LABS: Blood Urea Nitrogen 25 mg/dL (9-20); Calcium 8.9 mg/dL (8.4-10.2); Hemolysis Index 7
[2020-04-18 06:04] LABS: BUN/Creatinine Ratio 36
[2020-04-18] MEDS: CLOPIDOGREL 75 MG TAB PO SCH (09:23)
[2020-04-18] MEDS: ASPIRIN 325 MG TAB PO SCH (09:24)
--- NOTE | 2020-04-18 09:58 | Progress Note ---
Assessment and Plan Assessment and plan: Acute right pontine CVA. Hypertension. Hyperlipidemia. Obesity 04/14/2020. CTA of the head and CTA of head and neck negative for infarct or thrombus. Echocardiogram with bubble study pending MRI pending. PT/OT evaluation. Continue aspirin and Plavix (21 days). Continue statin. Continue antihypertensive medications. 04/15/2020. MRI revealed acute right-sided pontine infarction involving most of the mid samuel and a remote small deep infarction in the right thalamus. Neurology recommends aspirin 325 mg p.o. daily and Plavix 75 mg for 90 days. Continue statin therapy as well. Physical therapy evaluation recommends subacute rehab. Case management consulted 04/16/2020. Await subacute rehab placement. Continue aspirin, Plavix (90 days total) and statin. PT/OT/ST 04/17/2020. MRI revealed acute right-sided pontine infarction involving most of the mid samuel and a remote small deep infarction in the right thalamus. Await subacute rehab placement. Continue aspirin, Plavix (90 days total) and statin. PT/OT/ST. 04/18/2020; MRI revealed acute right-sided pontine infarction involving most of the mid samuel and a remote small deep infarction in the right thalamus. Await subacute rehab placement. Continue aspirin, Plavix (90 days total) and statin. PT/OT/ST. History Interval history: Patient was seen and evaluated this morning And said no improvement in the left-sided weakness No nursing issues reported to me overnight Hospitalist Physical - Physical exam Narrative exam: Not in cardiopulmonary distress. The patient appeared well nourished and normally developed. Vital signs as documented. Head exam is unremarkable. No scleral icterus . Neck is without jugular venous distension, thyromegaly, or carotid bruits. Lungs are clear to auscultation. Cardiac exam reveals regular rate and Rhythm. Abdominal exam reveals normal bowel sounds, nontender, no organomegaly. Extremities are nonedematous and both femoral and pedal pulses are normal. 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 Left-sided weakness. Dysarthria - Constitutional Vitals: Temp Pulse Resp BP Pulse Ox 98.0 F 64 18 121/75 94 04/18/20 04:52 04/18/20 09:27 04/18/20 04:52 04/18/20 04:52 04/18/20 09:07 General appearance: Present: no acute distress HEART Score - HEART Score Troponin: Troponin T < 0.010 ng/mL (0.00-0.029) 04/12/20 14:47 Results - Labs CBC & Chem 7: 04/18/20 04:51 04/18/20 04:51 Labs: Laboratory Last Values WBC 11.6 K/mm3 (4.5-11.0) H 04/18/20 04:51 RBC 5.30 M/mm3 (3.65-5.03) H 04/18/20 04:51 Hgb 17.0 gm/dl (11.8-15.2) H 04/18/20 04:51 Hct 49.4 % (35.5-45.6) H 04/18/20 04:51 MCV 93 fl (84-94) 04/18/20 04:51 MCH 32 pg (28-32) 04/18/20 04:51 MCHC 34 % (32-34) 04/18/20 04:51 RDW 13.1 % (13.2-15.2) L 04/18/20 04:51 Plt Count 242 K/mm3 (140-440) 04/18/20 04:51 Lymph % (Auto) 16.5 % (13.4-35.0) 04/18/20 04:51 [place] % (Auto) 8.5 % (0.0-7.3) H 04/18/20 04:51 Eos % (Auto) 2.8 % (0.0-4.3) 04/18/20 04:51 Baso % (Auto) 0.5 % (0.0-1.8) 04/18/20 04:51 Lymph # (Auto) 1.9 K/mm3 (1.2-5.4) 04/18/20 04:51 [place] # (Auto) 1.0 K/mm3 (0.0-0.8) H 04/18/20 04:51 Eos # (Auto) 0.3 K/mm3 (0.0-0.4) 04/18/20 04:51 Baso # (Auto) 0.1 K/mm3 (0.0-0.1) 04/18/20 04:51 Seg Neutrophils % 71.7 % (40.0-70.0) H 04/18/20 04:51 Seg Neutrophils # 8.3 K/mm3 (1.8-7.7) H 04/18/20 04:51 PT 13.3 Sec. (12.2-14.9) 04/12/20 14:47 INR 1.02 (0.87-1.13) 04/12/20 14:47 APTT 29.5 Sec. (24.2-36.6) 04/12/20 14:47 Thrombin Time 17.7 Sec. (15.1-19.6) 04/12/20 14:47 Sodium 138 mmol/L (137-145) 04/18/20 04:51 Potassium 3.9 mmol/L (3.6-5.0) 04/18/20 04:51 Chloride 103.8 mmol/L (98-107) 04/18/20 04:51 Carbon Dioxide 24 mmol/L (22-30) 04/18/20 04:51 Anion Gap 14 mmol/L 04/18/20 04:51 BUN 25 mg/dL (9-20) H 04/18/20 04:51 Creatinine 0.7 mg/dL (0.8-1.3) L 04/18/20 04:51 Estimated GFR > 60 ml/min 04/18/20 04:51 BUN/Creatinine Ratio 36 % 04/18/20 04:51 Glucose 102 mg/dL (75-100) H 04/18/20 04:51 Hemoglobin A1c 5.4 % (4-6) 04/14/20 04:50 Calcium 8.9 mg/dL (8.4-10.2) 04/18/20 04:51 Troponin T < 0.010 ng/mL (0.00-0.029) 04/12/20 14:47 Triglycerides 124 mg/dL (2-149) 04/14/20 04:50 Cholesterol 108 mg/dL (50-199) 04/14/20 04:50 LDL Cholesterol Direct 61 mg/dL (50-130) 04/14/20 04:50 HDL Cholesterol 37 mg/dL (40-59) L 04/14/20 04:50 Cholesterol/HDL Ratio 2.91 % 04/14/20 04:50 Nasal Screen MRSA (PCR) Negative (Negative) 04/13/20 03:38 King/IV: Voiding Method Urinal Active Medications - Current Medications Current Medications: Generic Name Dose Route Start Last Admin Trade Name Freq PRN Reason Stop Dose Admin Acetaminophen 650 mg 04/12/20 15:39 04/18/20 09:25 Acetaminophen 325 Mg Tab PO 650 mg Q4H PRN Administration Pain, Mild (1-3) Albuterol 2.5 mg 04/12/20 15:39 Albuterol 2.5 Mg/3 Ml Nebu IH Q3HRT PRN Shortness Of Breath Aspirin 325 mg 04/13/20 10:00 04/18/20 09:24 Aspirin 325 Mg Tab PO 325 mg QDAY TAYLOR Administration Atorvastatin Calcium 80 mg 04/13/20 22:00 04/17/20 21:14 Atorvastatin 40 Mg Tab PO 80 mg QHS TAYLOR Administration Bisacodyl 10 mg 04/12/20 15:39 Bisacodyl 10 Mg Rect Supp [place] QDAY PRN Constipation Bisacodyl 10 mg 04/14/20 10:00 04/14/20 10:01 Bisacodyl 5 Mg Tab PO 10 mg QDAY PRN Administration Constipation Clopidogrel Bisulfate 75 mg 04/13/20 10:00 04/18/20 09:23 Clopidogrel 75 Mg Tab PO 75 mg QDAY TAYLOR Administration Magnesium Hydroxide 30 ml 04/12/20 15:39 Magnesium Hydroxide (Mom) Oral Liqd Udc PO Q4H PRN Constipation Metoclopramide HCl 10 mg 04/12/20 15:39 Metoclopramide 10 Mg Tab PO Q6H PRN Nausea And Vomiting Ondansetron HCl 4 mg 04/12/20 15:39 Ondansetron 4 Mg/2 Ml Inj IV Q8H PRN Nausea And Vomiting Promethazine HCl 25 mg 04/12/20 15:39 Promethazine 25 Mg Rect Supp [place] Q6H PRN Nausea And Vomiting Sodium Chloride 10 ml 04/12/20 15:39 04/17/20 10:08 Sodium Chloride 0.9% 10 Ml Flush Syringe IV 10 ml PRN PRN Administration LINE FLUSH Nutrition/Malnutrition Assess - Dietary Evaluation Nutrition/Malnutrition Findings: Nutrition Notes Start: 04/13/20 09:42 Freq: Status: Active Protocol: Document 04/14/20 14:11 CW (Rec: 04/14/20 14:21 CW [id number]) Nutrition Notes Initial or Follow up Reassessment Current Diagnosis Stroke,Hyperlipidemia Other Pertinent Diagnosis Dysarthria, SOB Current Diet Cardiac diet Labs/Tests HgbA1c 5.4 Pertinent Medications Ducolax Height 5 ft 8 in Weight 98.7 kg [place] Body Weight (kg) 70.00 BMI 33.0 Intake Prior to Admission Excellent Weight change and time frame Weight change noted - weight change likely d/t bed scale error Weight Status Obese Subjective/Other Information F/U for intakes, RATE MARKER, and ONS. Pt currently eating meal and reports good appetite. Decreased intake d/t meal preferences per pt. Meal preferences noted. Build up of applesauce d/t dislike. Per RATE MARKER pt does not need diet modification. 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 No Is Patient Ambulatory and/or Out of Bed No REE-([facility]-confined to bed) 2124.468 Kcal/Kg value to use for calculation 18 Approximate Energy Requirements Using 1777 kcal/Kg Calculation Used for Recommendations Kcal/kg Additional Notes PRO needs: 69-86 g (0.8-1 g/kg AdBW 86kg) Fluid needs: 1 mL/kcal or per MD Nutrition Intervention Change Diet Order: Continue Cardiac Consistent Carbohydrate Diet Goal #1 Meet at least 75% of estimated energy and protein needs via diet Anticipated Discharge Needs: Cardiac Consistent Carbohydrate diet Follow-Up By: 04/18/20 Additional Comments F/U for PO intake, ONS needs, Weight stabilzation
--- NOTE | 2020-04-18 14:45 | Discharge Summary ---
Providers - Providers Date of Admission: 04/13/20 11:46 Attending physician: ELLIOTT LIN MD 04/12/20 15:39 Occupational Therapy Evaluate and Treat [CONS] Routine Comment: Reason For Exam: Neuro deficits Physical Therapy Evaluation and Treat [CONS] Routine Comment: Reason For Exam: Neuro deficits 04/12/20 15:41 Speech Therapy Evaluation and Treat [CONS] Routine Reason For Exam: swallow eval 04/13/20 15:03 Speech Therapy Evaluation and Treat [CONS] Routine Reason For Exam: coughing with swallowing 04/14/20 08:48 Consult to Physician [CONS] Routine Comment: Consulting Provider: JAMI DUBOIS Physician Instructions: Reason For Exam: CVA 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
[2020-04-18] MEDS: METOCLOPRAMIDE 10 MG TAB PO PRN (21:26)
[2020-04-18] MEDS: ONDANSETRON 4 MG/2 ML INJ IV PRN (21:34)
--- NOTE | 2020-04-19 08:35 | Progress Note ---
Assessment and Plan Assessment and plan: Acute right pontine CVA. Hypertension. Hyperlipidemia. Obesity 04/14/2020. CTA of the head and CTA of head and neck negative for infarct or thrombus. Echocardiogram with bubble study pending MRI pending. PT/OT evaluation. Continue aspirin and Plavix (21 days). Continue statin. Continue antihypertensive medications. 04/15/2020. MRI revealed acute right-sided pontine infarction involving most of the mid samuel and a remote small deep infarction in the right thalamus. Neurology recommends aspirin 325 mg p.o. daily and Plavix 75 mg for 90 days. Continue statin therapy as well. Physical therapy evaluation recommends subacute rehab. Case management consulted 04/16/2020. Await subacute rehab placement. Continue aspirin, Plavix (90 days total) and statin. PT/OT/ST 04/17/2020. MRI revealed acute right-sided pontine infarction involving most of the mid samuel and a remote small deep infarction in the right thalamus. Await subacute rehab placement. Continue aspirin, Plavix (90 days total) and statin. PT/OT/ST. 04/18/2020; MRI revealed acute right-sided pontine infarction involving most of the mid samuel and a remote small deep infarction in the right thalamus. Await subacute rehab placement. Continue aspirin, Plavix (90 days total) and statin. PT/OT/ST. 04/19/2020; [facility] and will be discharged there if rehab is arranged there. Continue with aspirin, Plavix and statin. History Interval history: Patient was seen and evaluated this morning And said no improvement in the left-sided weakness No nursing issues reported to me overnight Hospitalist Physical - Physical exam Narrative exam: Not in cardiopulmonary distress. The patient appeared well nourished and normally developed. Vital signs as documented. Head exam is unremarkable. No scleral icterus . Neck is without jugular venous distension, thyromegaly, or carotid bruits. Lungs are clear to auscultation. Cardiac exam reveals regular rate and Rhythm. Abdominal exam reveals normal bowel sounds, nontender, no organomegaly. Extremities are nonedematous and both femoral and pedal pulses are normal. 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 Left-sided weakness. Dysarthria - Constitutional Vitals: Temp Pulse Resp BP Pulse Ox 97.8 F 98 H 22 142/85 91 04/19/20 08:08 04/19/20 08:08 04/19/20 08:08 04/19/20 08:08 04/19/20 08:08 General appearance: Present: no acute distress HEART Score - HEART Score Troponin: Troponin T < 0.010 ng/mL (0.00-0.029) 04/12/20 14:47 Results - Labs CBC & Chem 7: 04/18/20 04:51 04/18/20 04:51 Labs: Laboratory Last Values WBC 11.6 K/mm3 (4.5-11.0) H 04/18/20 04:51 RBC 5.30 M/mm3 (3.65-5.03) H 04/18/20 04:51 Hgb 17.0 gm/dl (11.8-15.2) H 04/18/20 04:51 Hct 49.4 % (35.5-45.6) H 04/18/20 04:51 MCV 93 fl (84-94) 04/18/20 04:51 MCH 32 pg (28-32) 04/18/20 04:51 MCHC 34 % (32-34) 04/18/20 04:51 RDW 13.1 % (13.2-15.2) L 04/18/20 04:51 Plt Count 242 K/mm3 (140-440) 04/18/20 04:51 Lymph % (Auto) 16.5 % (13.4-35.0) 04/18/20 04:51 [place] % (Auto) 8.5 % (0.0-7.3) H 04/18/20 04:51 Eos % (Auto) 2.8 % (0.0-4.3) 04/18/20 04:51 Baso % (Auto) 0.5 % (0.0-1.8) 04/18/20 04:51 Lymph # (Auto) 1.9 K/mm3 (1.2-5.4) 04/18/20 04:51 [place] # (Auto) 1.0 K/mm3 (0.0-0.8) H 04/18/20 04:51 Eos # (Auto) 0.3 K/mm3 (0.0-0.4) 04/18/20 04:51 Baso # (Auto) 0.1 K/mm3 (0.0-0.1) 04/18/20 04:51 Seg Neutrophils % 71.7 % (40.0-70.0) H 04/18/20 04:51 Seg Neutrophils # 8.3 K/mm3 (1.8-7.7) H 04/18/20 04:51 PT 13.3 Sec. (12.2-14.9) 04/12/20 14:47 INR 1.02 (0.87-1.13) 04/12/20 14:47 APTT 29.5 Sec. (24.2-36.6) 04/12/20 14:47 Thrombin Time 17.7 Sec. (15.1-19.6) 04/12/20 14:47 Sodium 138 mmol/L (137-145) 04/18/20 04:51 Potassium 3.9 mmol/L (3.6-5.0) 04/18/20 04:51 Chloride 103.8 mmol/L (98-107) 04/18/20 04:51 Carbon Dioxide 24 mmol/L (22-30) 04/18/20 04:51 Anion Gap 14 mmol/L 04/18/20 04:51 BUN 25 mg/dL (9-20) H 04/18/20 04:51 Creatinine 0.7 mg/dL (0.8-1.3) L 04/18/20 04:51 Estimated GFR > 60 ml/min 04/18/20 04:51 BUN/Creatinine Ratio 36 % 04/18/20 04:51 Glucose 102 mg/dL (75-100) H 04/18/20 04:51 Hemoglobin A1c 5.4 % (4-6) 04/14/20 04:50 Calcium 8.9 mg/dL (8.4-10.2) 04/18/20 04:51 Troponin T < 0.010 ng/mL (0.00-0.029) 04/12/20 14:47 Triglycerides 124 mg/dL (2-149) 04/14/20 04:50 Cholesterol 108 mg/dL (50-199) 04/14/20 04:50 LDL Cholesterol Direct 61 mg/dL (50-130) 04/14/20 04:50 HDL Cholesterol 37 mg/dL (40-59) L 04/14/20 04:50 Cholesterol/HDL Ratio 2.91 % 04/14/20 04:50 Nasal Screen MRSA (PCR) Negative (Negative) 04/13/20 03:38 King/IV: Voiding Method Bedpan Active Medications - Current Medications Current Medications: Generic Name Dose Route Start Last Admin Trade Name Freq PRN Reason Stop Dose Admin Acetaminophen 650 mg 04/12/20 15:39 04/18/20 09:25 Acetaminophen 325 Mg Tab PO 650 mg Q4H PRN Administration Pain, Mild (1-3) Albuterol 2.5 mg 04/12/20 15:39 Albuterol 2.5 Mg/3 Ml Nebu IH Q3HRT PRN Shortness Of Breath Aspirin 325 mg 04/13/20 10:00 04/18/20 09:24 Aspirin 325 Mg Tab PO 325 mg QDAY TAYLOR Administration Atorvastatin Calcium 80 mg 04/13/20 22:00 04/18/20 21:21 Atorvastatin 40 Mg Tab PO 80 mg QHS TAYLOR Administration Bisacodyl 10 mg 04/12/20 15:39 Bisacodyl 10 Mg Rect Supp MS QDAY PRN Constipation Bisacodyl 10 mg 04/14/20 10:00 04/14/20 10:01 Bisacodyl 5 Mg Tab PO 10 mg QDAY PRN Administration Constipation Clopidogrel Bisulfate 75 mg 04/13/20 10:00 04/18/20 09:23 Clopidogrel 75 Mg Tab PO 75 mg QDAY TAYLOR Administration Magnesium Hydroxide 30 ml 04/12/20 15:39 Magnesium Hydroxide (Mom) Oral Liqd Udc PO Q4H PRN Constipation Metoclopramide HCl 10 mg 04/12/20 15:39 04/18/20 21:26 Metoclopramide 10 Mg Tab PO 10 mg Q6H PRN Administration Nausea And Vomiting Ondansetron HCl 4 mg 04/12/20 15:39 04/18/20 21:34 Ondansetron 4 Mg/2 Ml Inj IV 4 mg Q8H PRN Administration Nausea And Vomiting Promethazine HCl 25 mg 04/12/20 15:39 04/18/20 23:11 Promethazine 25 Mg Rect Supp MS 25 mg Q6H PRN Administration Nausea And Vomiting Sodium Chloride 10 ml 04/12/20 15:39 04/17/20 10:08 Sodium Chloride 0.9% 10 Ml Flush Syringe IV 10 ml PRN PRN Administration LINE FLUSH Nutrition/Malnutrition Assess - Dietary Evaluation Nutrition/Malnutrition Findings: Nutrition Notes Start: 04/13/20 09:42 Freq: Status: Active Protocol: Document 04/18/20 11:18 AB (Rec: 04/18/20 11:32 AB [id number]) Co-Sign 04/18/20 11:18 MK Nutrition Notes Initial or Follow up Reassessment Current Diagnosis Stroke,Hyperlipidemia Other Pertinent Diagnosis dysarthria, SOB, (R) pontine infarction Current Diet cardiac/consistent CHO Labs/Tests BUN 25 Cr 0.7 Pertinent Medications Lipitor Plavix Height 5 ft 8 in Weight 103.1 kg [place] Body Weight (kg) 70.00 BMI 34.5 Intake Prior to Admission Excellent Weight change and time frame Wt change noted. DI obtained new wt during visit. Weight Status Obese Subjective/Other Information F/U for intakes, need for ONS, and wt change. Pt states that his appetite is fair, eating 50-75% of meals, and that he is willing to try ONS daily. Pt stated to have stomach pain today. No problems with chewing or swallowing. Pt is having L side weakness and was unable to raise arm. There are no signs of malnutrition at this time. 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 No Is Patient Ambulatory and/or Out of Bed No REE-([facility]-confined to bed) 2177.220 Kcal/Kg value to use for calculation 18 Approximate Energy Requirements Using 1856 kcal/Kg Calculation Used for Recommendations Kcal/kg Additional Notes Protein needs: 62-78 g (0.8-1 g/kg AdBW 78 kg) Fluid needs: 1 mL/kcal or per MD Nutrition Intervention Change Diet Order: Continue Cardiac Consistent Carbohydrate Diet Add Supplement/Snack (indicate name/kcal Ensure Enlive daily /protein ) Provides kCal: 350 Provides Protein (gm) 20 Goal #1 Meet at least 75% of estimated energy and protein needs via PO and ONS Anticipated Discharge Needs: Cardiac/Consistent Carbohydrate diet Follow-Up By: 04/21/20 Additional Comments F/U for wt stability, intake, and ONS tolerance
[2020-04-19] MEDS: ASPIRIN 325 MG TAB PO SCH (10:52)
[2020-04-19] MEDS: CLOPIDOGREL 75 MG TAB PO SCH (10:52)
[2020-04-19] MEDS: ACETAMINOPHEN 325 MG TAB PO PRN (22:16)
[2020-04-19] MEDS: METOCLOPRAMIDE 10 MG TAB PO PRN (22:16)
[2020-04-19] MEDS: TEMAZEPAM 15 MG CAP PO PRN (22:16)
[2020-04-20] MEDS: CLOPIDOGREL 75 MG TAB PO SCH (09:00)
[2020-04-20] MEDS: ASPIRIN 325 MG TAB PO SCH (09:00)
--- NOTE | 2020-04-20 09:31 | Progress Note ---
Assessment and Plan Assessment and plan: Acute right pontine CVA. Hypertension. Hyperlipidemia. Obesity 04/14/2020. CTA of the head and CTA of head and neck negative for infarct or thrombus. Echocardiogram with bubble study pending MRI pending. PT/OT evaluation. Continue aspirin and Plavix (21 days). Continue statin. Continue antihypertensive medications. 04/15/2020. MRI revealed acute right-sided pontine infarction involving most of the mid samuel and a remote small deep infarction in the right thalamus. Neurology recommends aspirin 325 mg p.o. daily and Plavix 75 mg for 90 days. Continue statin therapy as well. Physical therapy evaluation recommends subacute rehab. Case management consulted 04/16/2020. Await subacute rehab placement. Continue aspirin, Plavix (90 days total) and statin. PT/OT/ST 04/17/2020. MRI revealed acute right-sided pontine infarction involving most of the mid samuel and a remote small deep infarction in the right thalamus. Await subacute rehab placement. Continue aspirin, Plavix (90 days total) and statin. PT/OT/ST. 04/18/2020; MRI revealed acute right-sided pontine infarction involving most of the mid samuel and a remote small deep infarction in the right thalamus. Await subacute rehab placement. Continue aspirin, Plavix (90 days total) and statin. PT/OT/ST. 04/19/2020; patient came from residential and will be discharged there if rehab is arranged there. Continue with aspirin, Plavix and statin. 04/20/2020; patient came from residential and will be discharged there if rehab is arranged there. Continue with aspirin, Plavix and statin. Pending transfer to [facility] for rehab, likely Friday. History Interval history: Patient was seen and evaluated this morning And said no improvement in the left-sided weakness No nursing issues reported to me overnight Hospitalist Physical - Physical exam Narrative exam: Not in cardiopulmonary distress. The patient appeared well nourished and normally developed. Vital signs as documented. Head exam is unremarkable. No scleral icterus . Neck is without jugular venous distension, thyromegaly, or carotid bruits. Lungs are clear to auscultation. Cardiac exam reveals regular rate and Rhythm. Abdominal exam reveals normal bowel sounds, nontender, no organomegaly. Extremities are nonedematous and both femoral and pedal pulses are normal. 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 Left-sided weakness. Dysarthria - Constitutional Vitals: Temp Pulse Resp BP Pulse Ox 97.5 F L 75 18 117/87 93 04/20/20 04:18 04/20/20 04:18 04/20/20 04:18 04/20/20 04:18 04/20/20 08:51 General appearance: Present: no acute distress HEART Score - HEART Score Troponin: Troponin T < 0.010 ng/mL (0.00-0.029) 04/12/20 14:47 Results - Labs CBC & Chem 7: 04/18/20 04:51 04/18/20 04:51 Labs: Laboratory Last Values WBC 11.6 K/mm3 (4.5-11.0) H 04/18/20 04:51 RBC 5.30 M/mm3 (3.65-5.03) H 04/18/20 04:51 Hgb 17.0 gm/dl (11.8-15.2) H 04/18/20 04:51 Hct 49.4 % (35.5-45.6) H 04/18/20 04:51 MCV 93 fl (84-94) 04/18/20 04:51 MCH 32 pg (28-32) 04/18/20 04:51 MCHC 34 % (32-34) 04/18/20 04:51 RDW 13.1 % (13.2-15.2) L 04/18/20 04:51 Plt Count 242 K/mm3 (140-440) 04/18/20 04:51 Lymph % (Auto) 16.5 % (13.4-35.0) 04/18/20 04:51 [place] % (Auto) 8.5 % (0.0-7.3) H 04/18/20 04:51 Eos % (Auto) 2.8 % (0.0-4.3) 04/18/20 04:51 Baso % (Auto) 0.5 % (0.0-1.8) 04/18/20 04:51 Lymph # (Auto) 1.9 K/mm3 (1.2-5.4) 04/18/20 04:51 [place] # (Auto) 1.0 K/mm3 (0.0-0.8) H 04/18/20 04:51 Eos # (Auto) 0.3 K/mm3 (0.0-0.4) 04/18/20 04:51 Baso # (Auto) 0.1 K/mm3 (0.0-0.1) 04/18/20 04:51 Seg Neutrophils % 71.7 % (40.0-70.0) H 04/18/20 04:51 Seg Neutrophils # 8.3 K/mm3 (1.8-7.7) H 04/18/20 04:51 PT 13.3 Sec. (12.2-14.9) 04/12/20 14:47 INR 1.02 (0.87-1.13) 04/12/20 14:47 APTT 29.5 Sec. (24.2-36.6) 04/12/20 14:47 Thrombin Time 17.7 Sec. (15.1-19.6) 04/12/20 14:47 Sodium 138 mmol/L (137-145) 04/18/20 04:51 Potassium 3.9 mmol/L (3.6-5.0) 04/18/20 04:51 Chloride 103.8 mmol/L (98-107) 04/18/20 04:51 Carbon Dioxide 24 mmol/L (22-30) 04/18/20 04:51 Anion Gap 14 mmol/L 04/18/20 04:51 BUN 25 mg/dL (9-20) H 04/18/20 04:51 Creatinine 0.7 mg/dL (0.8-1.3) L 04/18/20 04:51 Estimated GFR > 60 ml/min 04/18/20 04:51 BUN/Creatinine Ratio 36 % 04/18/20 04:51 Glucose 102 mg/dL (75-100) H 04/18/20 04:51 Hemoglobin A1c 5.4 % (4-6) 04/14/20 04:50 Calcium 8.9 mg/dL (8.4-10.2) 04/18/20 04:51 Troponin T < 0.010 ng/mL (0.00-0.029) 04/12/20 14:47 Triglycerides 124 mg/dL (2-149) 04/14/20 04:50 Cholesterol 108 mg/dL (50-199) 04/14/20 04:50 LDL Cholesterol Direct 61 mg/dL (50-130) 04/14/20 04:50 HDL Cholesterol 37 mg/dL (40-59) L 04/14/20 04:50 Cholesterol/HDL Ratio 2.91 % 04/14/20 04:50 Nasal Screen MRSA (PCR) Negative (Negative) 04/13/20 03:38 King/IV: Voiding Method Condom Catheter Active Medications - Current Medications Current Medications: Generic Name Dose Route Start Last Admin Trade Name Freq PRN Reason Stop Dose Admin Acetaminophen 650 mg 04/12/20 15:39 04/19/20 22:16 Acetaminophen 325 Mg Tab PO 650 mg Q4H PRN Administration Pain, Mild (1-3) Albuterol 2.5 mg 04/12/20 15:39 Albuterol 2.5 Mg/3 Ml Nebu IH Q3HRT PRN Shortness Of Breath Aspirin 325 mg 04/13/20 10:00 04/20/20 09:00 Aspirin 325 Mg Tab PO 325 mg QDAY TAYLOR Administration Atorvastatin Calcium 80 mg 04/13/20 22:00 04/19/20 22:16 Atorvastatin 40 Mg Tab PO 80 mg QHS TAYLOR Administration Bisacodyl 10 mg 04/12/20 15:39 Bisacodyl 10 Mg Rect Supp MO QDAY PRN Constipation Bisacodyl 10 mg 04/14/20 10:00 04/14/20 10:01 Bisacodyl 5 Mg Tab PO 10 mg QDAY PRN Administration Constipation Clopidogrel Bisulfate 75 mg 04/13/20 10:00 04/20/20 09:00 Clopidogrel 75 Mg Tab PO 07/11/20 10:01 75 mg QDAY TAYLOR Administration Magnesium Hydroxide 30 ml 04/12/20 15:39 Magnesium Hydroxide (Mom) Oral Liqd Udc PO Q4H PRN Constipation Metoclopramide HCl 10 mg 04/12/20 15:39 04/19/20 22:16 Metoclopramide 10 Mg Tab PO 10 mg Q6H PRN Administration Nausea And Vomiting Ondansetron HCl 4 mg 04/12/20 15:39 04/18/20 21:34 Ondansetron 4 Mg/2 Ml Inj IV 4 mg Q8H PRN Administration Nausea And Vomiting Promethazine HCl 25 mg 04/12/20 15:39 04/18/20 23:11 Promethazine 25 Mg Rect Supp [place] 25 mg Q6H PRN Administration Nausea And Vomiting Sodium Chloride 10 ml 04/12/20 15:39 04/19/20 22:22 Sodium Chloride 0.9% 10 Ml Flush Syringe IV 10 ml PRN PRN Administration LINE FLUSH Temazepam 15 mg 04/19/20 21:11 04/19/20 22:16 Temazepam 15 Mg Cap PO 15 mg QHS PRN Administration Sleep Nutrition/Malnutrition Assess - Dietary Evaluation Nutrition/Malnutrition Findings: Nutrition Notes Start: 04/13/20 09:42 Freq: Status: Active Protocol: Document 04/18/20 11:18 AB (Rec: 04/18/20 11:32 AB [id number]) Co-Sign 04/18/20 11:18 MK Nutrition Notes Initial or Follow up Reassessment Current Diagnosis Stroke,Hyperlipidemia Other Pertinent Diagnosis dysarthria, SOB, (R) pontine infarction Current Diet cardiac/consistent CHO Labs/Tests BUN 25 Cr 0.7 Pertinent Medications Lipitor Plavix Height 5 ft 8 in Weight 103.1 kg [place] Body Weight (kg) 70.00 BMI 34.5 Intake Prior to Admission Excellent Weight change and time frame Wt change noted. DI obtained new wt during visit. Weight Status Obese Subjective/Other Information F/U for intakes, need for ONS, and wt change. Pt states that his appetite is fair, eating 50-75% of meals, and that he is willing to try ONS daily. Pt stated to have stomach pain today. No problems with chewing or swallowing. Pt is having L side weakness and was unable to raise arm. There are no signs of malnutrition at this time. 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 No Is Patient Ambulatory and/or Out of Bed No REE-([place]-confined to bed) 2177.220 Kcal/Kg value to use for calculation 18 Approximate Energy Requirements Using 1856 kcal/Kg Calculation Used for Recommendations Kcal/kg Additional Notes Protein needs: 62-78 g (0.8-1 g/kg AdBW 78 kg) Fluid needs: 1 mL/kcal or per MD Nutrition Intervention Change Diet Order: Continue Cardiac Consistent Carbohydrate Diet Add Supplement/Snack (indicate name/kcal Ensure Enlive daily /protein ) Provides kCal: 350 Provides Protein (gm) 20 Goal #1 Meet at least 75% of estimated energy and protein needs via PO and ONS Anticipated Discharge Needs: Cardiac/Consistent Carbohydrate diet Follow-Up By: 04/21/20 Additional Comments F/U for wt stability, intake, and ONS tolerance
[2020-04-20] MEDS: ACETAMINOPHEN 325 MG TAB PO PRN ×2 (10:06→21:29)
[2020-04-20] MEDS: METOCLOPRAMIDE 10 MG TAB PO PRN (21:28)
[2020-04-20] MEDS: TEMAZEPAM 15 MG CAP PO PRN (21:29)
--- NOTE | 2020-04-21 08:23 | Progress Note ---
Assessment and Plan Assessment and plan: Acute right pontine CVA. Hypertension. Hyperlipidemia. Obesity 04/14/2020. CTA of the head and CTA of head and neck negative for infarct or thrombus. Echocardiogram with bubble study pending MRI pending. PT/OT evaluation. Continue aspirin and Plavix (21 days). Continue statin. Continue antihypertensive medications. 04/15/2020. MRI revealed acute right-sided pontine infarction involving most of the mid samuel and a remote small deep infarction in the right thalamus. Neurology recommends aspirin 325 mg p.o. daily and Plavix 75 mg for 90 days. Continue statin therapy as well. Physical therapy evaluation recommends subacute rehab. Case management consulted 04/16/2020. Await subacute rehab placement. Continue aspirin, Plavix (90 days total) and statin. PT/OT/ST 04/17/2020. MRI revealed acute right-sided pontine infarction involving most of the mid samuel and a remote small deep infarction in the right thalamus. Await subacute rehab placement. Continue aspirin, Plavix (90 days total) and statin. PT/OT/ST. 04/18/2020; MRI revealed acute right-sided pontine infarction involving most of the mid samuel and a remote small deep infarction in the right thalamus. Await subacute rehab placement. Continue aspirin, Plavix (90 days total) and statin. PT/OT/ST. 04/19/2020; patient came from residential and will be discharged there if rehab is arranged there. Continue with aspirin, Plavix and statin. 04/20/2020; patient came from residential and will be discharged there if rehab is arranged there. Continue with aspirin, Plavix and statin. Pending transfer to [facility] for rehab, likely Friday. 04/21/2020; patient came from residential and will be discharged there if rehab is arranged there. Continue with aspirin, Plavix and statin. Pending transfer to [facility] for rehab, likely Friday. History Interval history: Patient was seen and evaluated this morning And said no improvement in the left-sided weakness No nursing issues reported to me overnight Hospitalist Physical - Physical exam Narrative exam: Not in cardiopulmonary distress. The patient appeared well nourished and normally developed. Vital signs as documented. Head exam is unremarkable. No scleral icterus . Neck is without jugular venous distension, thyromegaly, or carotid bruits. Lungs are clear to auscultation. Cardiac exam reveals regular rate and Rhythm. Abdominal exam reveals normal bowel sounds, nontender, no organomegaly. Extremities are nonedematous and both femoral and pedal pulses are normal. 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 Left-sided weakness. Dysarthria - Constitutional Vitals: Temp Pulse Resp BP Pulse Ox 98.0 F 81 18 113/82 95 04/21/20 04:01 04/21/20 04:01 04/21/20 08:17 04/21/20 04:01 04/21/20 04:02 General appearance: Present: no acute distress HEART Score - HEART Score Troponin: Troponin T < 0.010 ng/mL (0.00-0.029) 04/12/20 14:47 Results - Labs CBC & Chem 7: 04/18/20 04:51 04/18/20 04:51 Labs: Laboratory Last Values WBC 11.6 K/mm3 (4.5-11.0) H 04/18/20 04:51 RBC 5.30 M/mm3 (3.65-5.03) H 04/18/20 04:51 Hgb 17.0 gm/dl (11.8-15.2) H 04/18/20 04:51 Hct 49.4 % (35.5-45.6) H 04/18/20 04:51 MCV 93 fl (84-94) 04/18/20 04:51 MCH 32 pg (28-32) 04/18/20 04:51 MCHC 34 % (32-34) 04/18/20 04:51 RDW 13.1 % (13.2-15.2) L 04/18/20 04:51 Plt Count 242 K/mm3 (140-440) 04/18/20 04:51 Lymph % (Auto) 16.5 % (13.4-35.0) 04/18/20 04:51 [place] % (Auto) 8.5 % (0.0-7.3) H 04/18/20 04:51 Eos % (Auto) 2.8 % (0.0-4.3) 04/18/20 04:51 Baso % (Auto) 0.5 % (0.0-1.8) 04/18/20 04:51 Lymph # (Auto) 1.9 K/mm3 (1.2-5.4) 04/18/20 04:51 [place] # (Auto) 1.0 K/mm3 (0.0-0.8) H 04/18/20 04:51 Eos # (Auto) 0.3 K/mm3 (0.0-0.4) 04/18/20 04:51 Baso # (Auto) 0.1 K/mm3 (0.0-0.1) 04/18/20 04:51 Seg Neutrophils % 71.7 % (40.0-70.0) H 04/18/20 04:51 Seg Neutrophils # 8.3 K/mm3 (1.8-7.7) H 04/18/20 04:51 PT 13.3 Sec. (12.2-14.9) 04/12/20 14:47 INR 1.02 (0.87-1.13) 04/12/20 14:47 APTT 29.5 Sec. (24.2-36.6) 04/12/20 14:47 Thrombin Time 17.7 Sec. (15.1-19.6) 04/12/20 14:47 Sodium 138 mmol/L (137-145) 04/18/20 04:51 Potassium 3.9 mmol/L (3.6-5.0) 04/18/20 04:51 Chloride 103.8 mmol/L (98-107) 04/18/20 04:51 Carbon Dioxide 24 mmol/L (22-30) 04/18/20 04:51 Anion Gap 14 mmol/L 04/18/20 04:51 BUN 25 mg/dL (9-20) H 04/18/20 04:51 Creatinine 0.7 mg/dL (0.8-1.3) L 04/18/20 04:51 Estimated GFR > 60 ml/min 04/18/20 04:51 BUN/Creatinine Ratio 36 % 04/18/20 04:51 Glucose 102 mg/dL (75-100) H 04/18/20 04:51 Hemoglobin A1c 5.4 % (4-6) 04/14/20 04:50 Calcium 8.9 mg/dL (8.4-10.2) 04/18/20 04:51 Troponin T < 0.010 ng/mL (0.00-0.029) 04/12/20 14:47 Triglycerides 124 mg/dL (2-149) 04/14/20 04:50 Cholesterol 108 mg/dL (50-199) 04/14/20 04:50 LDL Cholesterol Direct 61 mg/dL (50-130) 04/14/20 04:50 HDL Cholesterol 37 mg/dL (40-59) L 04/14/20 04:50 Cholesterol/HDL Ratio 2.91 % 04/14/20 04:50 Nasal Screen MRSA (PCR) Negative (Negative) 04/13/20 03:38 King/IV: Voiding Method Condom Catheter Active Medications - Current Medications Current Medications: Generic Name Dose Route Start Last Admin Trade Name Freq PRN Reason Stop Dose Admin Acetaminophen 650 mg 04/12/20 15:39 04/20/20 21:29 Acetaminophen 325 Mg Tab PO 650 mg Q4H PRN Administration Pain, Mild (1-3) Albuterol 2.5 mg 04/12/20 15:39 Albuterol 2.5 Mg/3 Ml Nebu IH Q3HRT PRN Shortness Of Breath Aspirin 325 mg 04/13/20 10:00 04/20/20 09:00 Aspirin 325 Mg Tab PO 325 mg QDAY TAYLOR Administration Atorvastatin Calcium 80 mg 04/13/20 22:00 04/20/20 21:29 Atorvastatin 40 Mg Tab PO 80 mg QHS TAYLOR Administration Bisacodyl 10 mg 04/12/20 15:39 Bisacodyl 10 Mg Rect Supp [place] QDAY PRN Constipation Bisacodyl 10 mg 04/14/20 10:00 04/14/20 10:01 Bisacodyl 5 Mg Tab PO 10 mg QDAY PRN Administration Constipation Clopidogrel Bisulfate 75 mg 04/13/20 10:00 04/20/20 09:00 Clopidogrel 75 Mg Tab PO 07/11/20 10:01 75 mg QDAY TAYLOR Administration Magnesium Hydroxide 30 ml 04/12/20 15:39 Magnesium Hydroxide (Mom) Oral Liqd Udc PO Q4H PRN Constipation Metoclopramide HCl 10 mg 04/12/20 15:39 04/20/20 21:28 Metoclopramide 10 Mg Tab PO 10 mg Q6H PRN Administration Nausea And Vomiting Ondansetron HCl 4 mg 04/12/20 15:39 04/18/20 21:34 Ondansetron 4 Mg/2 Ml Inj IV 4 mg Q8H PRN Administration Nausea And Vomiting Promethazine HCl 25 mg 04/12/20 15:39 04/18/20 23:11 Promethazine 25 Mg Rect Supp [place] 25 mg Q6H PRN Administration Nausea And Vomiting Sodium Chloride 10 ml 04/12/20 15:39 04/19/20 22:22 Sodium Chloride 0.9% 10 Ml Flush Syringe IV 10 ml PRN PRN Administration LINE FLUSH Temazepam 15 mg 04/19/20 21:11 04/20/20 21:29 Temazepam 15 Mg Cap PO 15 mg QHS PRN Administration Sleep Nutrition/Malnutrition Assess - Dietary Evaluation Nutrition/Malnutrition Findings: Nutrition Notes Start: 04/13/20 09:42 Freq: Status: Active Protocol: Document 04/18/20 11:18 AB (Rec: 04/18/20 11:32 AB [id number]) Co-Sign 04/18/20 11:18 MK Nutrition Notes Initial or Follow up Reassessment Current Diagnosis Stroke,Hyperlipidemia Other Pertinent Diagnosis dysarthria, SOB, (R) pontine infarction Current Diet cardiac/consistent CHO Labs/Tests BUN 25 Cr 0.7 Pertinent Medications Lipitor Plavix Height 5 ft 8 in Weight 103.1 kg [place] Body Weight (kg) 70.00 BMI 34.5 Intake Prior to Admission Excellent Weight change and time frame Wt change noted. DI obtained new wt during visit. Weight Status Obese Subjective/Other Information F/U for intakes, need for ONS, and wt change. Pt states that his appetite is fair, eating 50-75% of meals, and that he is willing to try ONS daily. Pt stated to have stomach pain today. No problems with chewing or swallowing. Pt is having L side weakness and was unable to raise arm. There are no signs of malnutrition at this time. 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 No Is Patient Ambulatory and/or Out of Bed No REE-([facility]-confined to bed) 2177.220 Kcal/Kg value to use for calculation 18 Approximate Energy Requirements Using 1856 kcal/Kg Calculation Used for Recommendations Kcal/kg Additional Notes Protein needs: 62-78 g (0.8-1 g/kg AdBW 78 kg) Fluid needs: 1 mL/kcal or per MD Nutrition Intervention Change Diet Order: Continue Cardiac Consistent Carbohydrate Diet Add Supplement/Snack (indicate name/kcal Ensure Enlive daily /protein ) Provides kCal: 350 Provides Protein (gm) 20 Goal #1 Meet at least 75% of estimated energy and protein needs via PO and ONS Anticipated Discharge Needs: Cardiac/Consistent Carbohydrate diet Follow-Up By: 04/21/20 Additional Comments F/U for wt stability, intake, and ONS tolerance
[2020-04-21] MEDS: CLOPIDOGREL 75 MG TAB PO SCH (09:31)
[2020-04-21] MEDS: ASPIRIN 325 MG TAB PO SCH (09:31)
[2020-04-21] MEDS: ACETAMINOPHEN 325 MG TAB PO PRN ×2 (16:44→21:55)
[2020-04-21] MEDS: TEMAZEPAM 15 MG CAP PO PRN (21:54)
--- NOTE | 2020-04-22 08:50 | Progress Note ---
Assessment and Plan Assessment and plan: Acute right pontine CVA. Hypertension. Hyperlipidemia. Obesity 04/14/2020. CTA of the head and CTA of head and neck negative for infarct or thrombus. Echocardiogram with bubble study pending MRI pending. PT/OT evaluation. Continue aspirin and Plavix (21 days). Continue statin. Continue antihypertensive medications. 04/15/2020. MRI revealed acute right-sided pontine infarction involving most of the mid samuel and a remote small deep infarction in the right thalamus. Neurology recommends aspirin 325 mg p.o. daily and Plavix 75 mg for 90 days. Continue statin therapy as well. Physical therapy evaluation recommends subacute rehab. Case management consulted 04/16/2020. Await subacute rehab placement. Continue aspirin, Plavix (90 days total) and statin. PT/OT/ST 04/17/2020. MRI revealed acute right-sided pontine infarction involving most of the mid samuel and a remote small deep infarction in the right thalamus. Await subacute rehab placement. Continue aspirin, Plavix (90 days total) and statin. PT/OT/ST. 04/18/2020; MRI revealed acute right-sided pontine infarction involving most of the mid samuel and a remote small deep infarction in the right thalamus. Await subacute rehab placement. Continue aspirin, Plavix (90 days total) and statin. PT/OT/ST. 04/19/2020; [facility] and will be discharged [facility] if rehab is arranged there. Continue with aspirin, Plavix and statin. 04/20/2020; patient came [facility] and will be discharged there if rehab is arranged there. Continue with aspirin, Plavix and statin. Pending transfer to [facility] for rehab, likely Friday. 04/21/2020; [facility] and will be discharged there if rehab is arranged there. Continue with aspirin, Plavix and statin. Pending transfer to [facility] for rehab, likely Friday. 03/25/2020; [facility] came [facility] and will be discharged there if rehab is arranged there. Continue with aspirin, Plavix and statin. Pending transfer to [facility] for rehab, likely Friday. History Interval history: Patient was seen and evaluated this morning And said no improvement in the left-sided weakness No nursing issues reported to me overnight Hospitalist Physical - Physical exam Narrative exam: Not in cardiopulmonary distress. The patient appeared well nourished and normally developed. Vital signs as documented. Head exam is unremarkable. No scleral icterus . Neck is without jugular venous distension, thyromegaly, or carotid bruits. Lungs are clear to auscultation. Cardiac exam reveals regular rate and Rhythm. Abdominal exam reveals normal bowel sounds, nontender, no organomegaly. Extremities are nonedematous and both femoral and pedal pulses are normal. [place] [employer]: Alert and oriented 3. Left-sided weakness. Dysarthria - Constitutional Vitals: Temp Pulse Resp BP Pulse Ox 98.2 F 76 20 129/95 95 04/22/20 07:52 04/22/20 07:52 04/22/20 07:52 04/22/20 07:52 04/22/20 07:52 General appearance: Present: no acute distress HEART Score - HEART Score Troponin: Troponin T < 0.010 ng/mL (0.00-0.029) 04/12/20 14:47 Results - Labs CBC & Chem 7: 04/18/20 04:51 04/18/20 04:51 Labs: Laboratory Last Values WBC 11.6 K/mm3 (4.5-11.0) H 04/18/20 04:51 RBC 5.30 M/mm3 (3.65-5.03) H 04/18/20 04:51 Hgb 17.0 gm/dl (11.8-15.2) H 04/18/20 04:51 Hct 49.4 % (35.5-45.6) H 04/18/20 04:51 MCV 93 fl (84-94) 04/18/20 04:51 MCH 32 pg (28-32) 04/18/20 04:51 MCHC 34 % (32-34) 04/18/20 04:51 RDW 13.1 % (13.2-15.2) L 04/18/20 04:51 Plt Count 242 K/mm3 (140-440) 04/18/20 04:51 Lymph % (Auto) 16.5 % (13.4-35.0) 04/18/20 04:51 [place] % (Auto) 8.5 % (0.0-7.3) H 04/18/20 04:51 Eos % (Auto) 2.8 % (0.0-4.3) 04/18/20 04:51 Baso % (Auto) 0.5 % (0.0-1.8) 04/18/20 04:51 Lymph # (Auto) 1.9 K/mm3 (1.2-5.4) 04/18/20 04:51 [place] # (Auto) 1.0 K/mm3 (0.0-0.8) H 04/18/20 04:51 Eos # (Auto) 0.3 K/mm3 (0.0-0.4) 04/18/20 04:51 Baso # (Auto) 0.1 K/mm3 (0.0-0.1) 04/18/20 04:51 Seg Neutrophils % 71.7 % (40.0-70.0) H 04/18/20 04:51 Seg Neutrophils # 8.3 K/mm3 (1.8-7.7) H 04/18/20 04:51 PT 13.3 Sec. (12.2-14.9) 04/12/20 14:47 INR 1.02 (0.87-1.13) 04/12/20 14:47 APTT 29.5 Sec. (24.2-36.6) 04/12/20 14:47 Thrombin Time 17.7 Sec. (15.1-19.6) 04/12/20 14:47 Sodium 138 mmol/L (137-145) 04/18/20 04:51 Potassium 3.9 mmol/L (3.6-5.0) 04/18/20 04:51 Chloride 103.8 mmol/L (98-107) 04/18/20 04:51 Carbon Dioxide 24 mmol/L (22-30) 04/18/20 04:51 Anion Gap 14 mmol/L 04/18/20 04:51 BUN 25 mg/dL (9-20) H 04/18/20 04:51 Creatinine 0.7 mg/dL (0.8-1.3) L 04/18/20 04:51 Estimated GFR > 60 ml/min 04/18/20 04:51 BUN/Creatinine Ratio 36 % 04/18/20 04:51 Glucose 102 mg/dL (75-100) H 04/18/20 04:51 Hemoglobin A1c 5.4 % (4-6) 04/14/20 04:50 Calcium 8.9 mg/dL (8.4-10.2) 04/18/20 04:51 Troponin T < 0.010 ng/mL (0.00-0.029) 04/12/20 14:47 Triglycerides 124 mg/dL (2-149) 04/14/20 04:50 Cholesterol 108 mg/dL (50-199) 04/14/20 04:50 LDL Cholesterol Direct 61 mg/dL (50-130) 04/14/20 04:50 HDL Cholesterol 37 mg/dL (40-59) L 04/14/20 04:50 Cholesterol/HDL Ratio 2.91 % 04/14/20 04:50 Nasal Screen MRSA (PCR) Negative (Negative) 04/13/20 03:38 King/IV: Voiding Method Condom Catheter Active Medications - Current Medications Current Medications: Generic Name Dose Route Start Last Admin Trade Name Freq PRN Reason Stop Dose Admin Acetaminophen 650 mg 04/12/20 15:39 04/21/20 21:55 Acetaminophen 325 Mg Tab PO 650 mg Q4H PRN Administration Pain, Mild (1-3) Albuterol 2.5 mg 04/12/20 15:39 Albuterol 2.5 Mg/3 Ml Nebu IH Q3HRT PRN Shortness Of Breath Aspirin 325 mg 04/13/20 10:00 04/21/20 09:31 Aspirin 325 Mg Tab PO 325 mg QDAY TAYLOR Administration Atorvastatin Calcium 80 mg 04/13/20 22:00 04/21/20 21:55 Atorvastatin 40 Mg Tab PO 80 mg QHS TAYLOR Administration Bisacodyl 10 mg 04/12/20 15:39 Bisacodyl 10 Mg Rect Supp [place] QDAY PRN Constipation Bisacodyl 10 mg 04/14/20 10:00 04/14/20 10:01 Bisacodyl 5 Mg Tab PO 10 mg QDAY PRN Administration Constipation Clopidogrel Bisulfate 75 mg 04/13/20 10:00 04/21/20 09:31 Clopidogrel 75 Mg Tab PO 07/11/20 10:01 75 mg QDAY TAYLOR Administration Magnesium Hydroxide 30 ml 04/12/20 15:39 Magnesium Hydroxide (Mom) Oral Liqd Udc PO Q4H PRN Constipation Metoclopramide HCl 10 mg 04/12/20 15:39 04/20/20 21:28 Metoclopramide 10 Mg Tab PO 10 mg Q6H PRN Administration Nausea And Vomiting Ondansetron HCl 4 mg 04/12/20 15:39 04/18/20 21:34 Ondansetron 4 Mg/2 Ml Inj IV 4 mg Q8H PRN Administration Nausea And Vomiting Promethazine HCl 25 mg 04/12/20 15:39 04/18/20 23:11 Promethazine 25 Mg Rect Supp [place] 25 mg Q6H PRN Administration Nausea And Vomiting Sodium Chloride 10 ml 04/12/20 15:39 04/19/20 22:22 Sodium Chloride 0.9% 10 Ml Flush Syringe IV 10 ml PRN PRN Administration LINE FLUSH Temazepam 15 mg 04/19/20 21:11 04/21/20 21:54 Temazepam 15 Mg Cap PO 15 mg QHS PRN Administration Sleep Nutrition/Malnutrition Assess - Dietary Evaluation Nutrition/Malnutrition Findings: Nutrition Notes Start: 04/13/20 09:42 Freq: Status: Active Protocol: Document 04/21/20 11:48 AT (Rec: 04/21/20 12:03 AT [id number]) Co-Sign 04/21/20 11:48 CW Nutrition Notes Initial or Follow up Reassessment Current Diagnosis Stroke,Hyperlipidemia Other Pertinent Diagnosis dysarthria, SOB, (R) pontine infarction Current Diet Cardiac/Consistent CHO Labs/Tests BUN 25 Cr 0.7 Pertinent Medications Reviewed Height 5 ft 8 in Weight 98.6 kg [place] Body Weight (kg) 70.00 BMI 33.0 Intake Prior to Admission Excellent Weight change and time frame Wt fluctuation noted. 4% weight loss from UBW/adm wt in one week. Weight Status Obese Subjective/Other Information Follow up for wt stability, intake, and ONS tolerance. Pt reports that he has a normal appetite, but is only consuming 20%, because of his upset stomach. Pt's preferences were recorded and pt did not want ONS BID, because he cannot tolerate room temperature beverages. Preferences communicated to dietary. Per chart, pt is consuming 40% of meals on average. 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 No Is Patient Ambulatory and/or Out of Bed No REE-([facility]-confined to bed) 2123.268 Kcal/Kg value to use for calculation 19 Approximate Energy Requirements Using 1873 kcal/Kg Calculation Used for Recommendations Kcal/kg Additional Notes PRO needs: 100-126g (1.2-1.5g/ kg AdBW 84kg) Fluid needs: 1 mL/kcal or per MD Nutrition Intervention Change Diet Order: Continue Cardiac Consistent Carbohydrate Diet Add Supplement/Snack (indicate name/kcal Ensure Enlive daily /protein ) Provides kCal: 350 Provides Protein (gm) 20 Goal #1 Meet at least 75% of estimated energy and protein needs via PO and ONS Goal #2 Weight maintenance Anticipated Discharge Needs: Cardiac/Consistent CHO Follow-Up By: 04/24/20 Additional Comments F/U for stable intakes, ONS tolerance, weight
[2020-04-22] MEDS: ASPIRIN 325 MG TAB PO SCH (09:53)
[2020-04-22] MEDS: CLOPIDOGREL 75 MG TAB PO SCH (09:54)
[2020-04-22] MEDS: ACETAMINOPHEN 325 MG TAB PO PRN ×2 (09:59→21:13)
[2020-04-22] MEDS: TEMAZEPAM 15 MG CAP PO PRN (21:10)
[2020-04-23] MEDS: ACETAMINOPHEN 325 MG TAB PO PRN ×3 (09:03→21:42)
[2020-04-23] MEDS: CLOPIDOGREL 75 MG TAB PO SCH (09:04)
[2020-04-23] MEDS: ASPIRIN 325 MG TAB PO SCH (09:04)
--- NOTE | 2020-04-23 09:28 | Progress Note ---
Assessment and Plan Assessment and plan: Acute right pontine CVA. Hypertension. Hyperlipidemia. Obesity 04/14/2020. CTA of the head and CTA of head and neck negative for infarct or thrombus. Echocardiogram with bubble study pending MRI pending. PT/OT evaluation. Continue aspirin and Plavix (21 days). Continue statin. Continue antihypertensive medications. 04/15/2020. MRI revealed acute right-sided pontine infarction involving most of the mid samuel and a remote small deep infarction in the right thalamus. Neurology recommends aspirin 325 mg p.o. daily and Plavix 75 mg for 90 days. Continue statin therapy as well. Physical therapy evaluation recommends subacute rehab. Case management consulted 04/16/2020. Await subacute rehab placement. Continue aspirin, Plavix (90 days total) and statin. PT/OT/ST 04/17/2020. MRI revealed acute right-sided pontine infarction involving most of the mid samuel and a remote small deep infarction in the right thalamus. Await subacute rehab placement. Continue aspirin, Plavix (90 days total) and statin. PT/OT/ST. 04/18/2020; MRI revealed acute right-sided pontine infarction involving most of the mid samuel and a remote small deep infarction in the right thalamus. Await subacute rehab placement. Continue aspirin, Plavix (90 days total) and statin. PT/OT/ST. 04/19/2020; [facility] and [facility] be [facility] if rehab is arranged there. Continue with aspirin, Plavix and statin. 04/20/2020; [facility] and will be discharged there if rehab is arranged there. Continue with aspirin, Plavix and statin. Pending transfer to [facility] for rehab, likely Friday. 04/21/2020; [facility] and will be discharged there if rehab is arranged there. Continue with aspirin, Plavix and statin. Pending transfer to [facility] for rehab, likely Friday. 04/22/2020; [facility] and will be discharged there if rehab is arranged there. Continue with aspirin, Plavix and statin. Pending transfer to [facility] for rehab, likely Friday. 04/23/2020 [facility] and will be discharged there if rehab is arranged there. Continue with aspirin, Plavix and statin. Pending transfer to [facility] for rehab, likely Friday. Please follow with case management. History Interval history: Patient was seen and evaluated this morning Patient said no improvement in the left-sided weakness Hospitalist Physical - Physical exam Narrative exam: Not in cardiopulmonary distress. The patient appeared well nourished and normally developed. Vital signs as documented. Head exam is unremarkable. No scleral icterus . Neck is without jugular venous distension, thyromegaly, or carotid bruits. Lungs are clear to auscultation. Cardiac exam reveals regular rate and Rhythm. Abdominal exam reveals normal bowel sounds, nontender, no organomegaly. Extremities are nonedematous and both femoral and pedal pulses are normal. [place] MAN: Alert and oriented 3. Left-sided weakness. Dysarthria - Constitutional Vitals: Temp Pulse Resp BP Pulse Ox 98.4 F 89 18 137/92 92 04/23/20 08:04 04/23/20 08:04 04/23/20 04:36 04/23/20 08:04 04/23/20 08:23 General appearance: Present: no acute distress HEART Score - HEART Score Troponin: Troponin T < 0.010 ng/mL (0.00-0.029) 04/12/20 14:47 Results - Labs CBC & Chem 7: 04/18/20 04:51 04/18/20 04:51 Labs: Laboratory Last Values WBC 11.6 K/mm3 (4.5-11.0) H 04/18/20 04:51 RBC 5.30 M/mm3 (3.65-5.03) H 04/18/20 04:51 Hgb 17.0 gm/dl (11.8-15.2) H 04/18/20 04:51 Hct 49.4 % (35.5-45.6) H 04/18/20 04:51 MCV 93 fl (84-94) 04/18/20 04:51 MCH 32 pg (28-32) 04/18/20 04:51 MCHC 34 % (32-34) 04/18/20 04:51 RDW 13.1 % (13.2-15.2) L 04/18/20 04:51 Plt Count 242 K/mm3 (140-440) 04/18/20 04:51 Lymph % (Auto) 16.5 % (13.4-35.0) 04/18/20 04:51 [place] % (Auto) 8.5 % (0.0-7.3) H 04/18/20 04:51 Eos % (Auto) 2.8 % (0.0-4.3) 04/18/20 04:51 Baso % (Auto) 0.5 % (0.0-1.8) 04/18/20 04:51 Lymph # (Auto) 1.9 K/mm3 (1.2-5.4) 04/18/20 04:51 [place] # (Auto) 1.0 K/mm3 (0.0-0.8) H 04/18/20 04:51 Eos # (Auto) 0.3 K/mm3 (0.0-0.4) 04/18/20 04:51 Baso # (Auto) 0.1 K/mm3 (0.0-0.1) 04/18/20 04:51 Seg Neutrophils % 71.7 % (40.0-70.0) H 04/18/20 04:51 Seg Neutrophils # 8.3 K/mm3 (1.8-7.7) H 04/18/20 04:51 PT 13.3 Sec. (12.2-14.9) 04/12/20 14:47 INR 1.02 (0.87-1.13) 04/12/20 14:47 APTT 29.5 Sec. (24.2-36.6) 04/12/20 14:47 Thrombin Time 17.7 Sec. (15.1-19.6) 04/12/20 14:47 Sodium 138 mmol/L (137-145) 04/18/20 04:51 Potassium 3.9 mmol/L (3.6-5.0) 04/18/20 04:51 Chloride 103.8 mmol/L (98-107) 04/18/20 04:51 Carbon Dioxide 24 mmol/L (22-30) 04/18/20 04:51 Anion Gap 14 mmol/L 04/18/20 04:51 BUN 25 mg/dL (9-20) H 04/18/20 04:51 Creatinine 0.7 mg/dL (0.8-1.3) L 04/18/20 04:51 Estimated GFR > 60 ml/min 04/18/20 04:51 BUN/Creatinine Ratio 36 % 04/18/20 04:51 Glucose 102 mg/dL (75-100) H 04/18/20 04:51 Hemoglobin A1c 5.4 % (4-6) 04/14/20 04:50 Calcium 8.9 mg/dL (8.4-10.2) 04/18/20 04:51 Troponin T < 0.010 ng/mL (0.00-0.029) 04/12/20 14:47 Triglycerides 124 mg/dL (2-149) 04/14/20 04:50 Cholesterol 108 mg/dL (50-199) 04/14/20 04:50 LDL Cholesterol Direct 61 mg/dL (50-130) 04/14/20 04:50 HDL Cholesterol 37 mg/dL (40-59) L 04/14/20 04:50 Cholesterol/HDL Ratio 2.91 % 04/14/20 04:50 Nasal Screen MRSA (PCR) Negative (Negative) 04/13/20 03:38 King/IV: Voiding Method Condom Catheter Active Medications - Current Medications Current Medications: Generic Name Dose Route Start Last Admin Trade Name Freq PRN Reason Stop Dose Admin Acetaminophen 650 mg 04/12/20 15:39 04/23/20 09:03 Acetaminophen 325 Mg Tab PO 650 mg Q4H PRN Administration Pain, Mild (1-3) Albuterol 2.5 mg 04/12/20 15:39 Albuterol 2.5 Mg/3 Ml Nebu IH Q3HRT PRN Shortness Of Breath Aspirin 325 mg 04/13/20 10:00 04/23/20 09:04 Aspirin 325 Mg Tab PO 325 mg QDAY TAYLOR Administration Atorvastatin Calcium 80 mg 04/13/20 22:00 04/22/20 21:10 Atorvastatin 40 Mg Tab PO 80 mg QHS TAYLOR Administration Bisacodyl 10 mg 04/12/20 15:39 Bisacodyl 10 Mg Rect Supp [place] QDAY PRN Constipation Bisacodyl 10 mg 04/14/20 10:00 04/14/20 10:01 Bisacodyl 5 Mg Tab PO 10 mg QDAY PRN Administration Constipation Clopidogrel Bisulfate 75 mg 04/13/20 10:00 04/23/20 09:04 Clopidogrel 75 Mg Tab PO 07/11/20 10:01 75 mg QDAY TAYLOR Administration Magnesium Hydroxide 30 ml 04/12/20 15:39 Magnesium Hydroxide (Mom) Oral Liqd Udc PO Q4H PRN Constipation Metoclopramide HCl 10 mg 04/12/20 15:39 04/20/20 21:28 Metoclopramide 10 Mg Tab PO 10 mg Q6H PRN Administration Nausea And Vomiting Ondansetron HCl 4 mg 04/12/20 15:39 04/18/20 21:34 Ondansetron 4 Mg/2 Ml Inj IV 4 mg Q8H PRN Administration Nausea And Vomiting Promethazine HCl 25 mg 04/12/20 15:39 04/18/20 23:11 Promethazine 25 Mg Rect Supp [place] 25 mg Q6H PRN Administration Nausea And Vomiting Sodium Chloride 10 ml 04/12/20 15:39 04/19/20 22:22 Sodium Chloride 0.9% 10 Ml Flush Syringe IV 10 ml PRN PRN Administration LINE FLUSH Temazepam 15 mg 04/19/20 21:11 04/22/20 21:10 Temazepam 15 Mg Cap PO 15 mg QHS PRN Administration Sleep Nutrition/Malnutrition Assess - Dietary Evaluation Nutrition/Malnutrition Findings: Nutrition Notes Start: 04/13/20 09:42 Freq: Status: Active Protocol: Document 04/21/20 11:48 AT (Rec: 04/21/20 12:03 AT [id number]) Co-Sign 04/21/20 11:48 CW Nutrition Notes Initial or Follow up Reassessment Current Diagnosis Stroke,Hyperlipidemia Other Pertinent Diagnosis dysarthria, SOB, (R) pontine infarction Current Diet Cardiac/Consistent CHO Labs/Tests BUN 25 Cr 0.7 Pertinent Medications Reviewed Height 5 ft 8 in Weight 98.6 kg [place] Body Weight (kg) 70.00 BMI 33.0 Intake Prior to Admission Excellent Weight change and time frame Wt fluctuation noted. 4% weight loss from UBW/adm wt in one week. Weight Status Obese Subjective/Other Information Follow up for wt stability, intake, and ONS tolerance. Pt reports that he has a normal appetite, but is only consuming 20%, because of his upset stomach. Pt's preferences were recorded and pt did not want ONS BID, because he cannot tolerate room temperature beverages. Preferences communicated to dietary. Per chart, pt is consuming 40% of meals on average. 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 No Is Patient Ambulatory and/or Out of Bed No REE-([facility]-confined to bed) 7163.268 Kcal/Kg value to use for calculation 19 Approximate Energy Requirements Using 1873 kcal/Kg Calculation Used for Recommendations Kcal/kg Additional Notes PRO needs: 100-126g (1.2-1.5g/ kg AdBW 84kg) Fluid needs: 1 mL/kcal or per MD Nutrition Intervention Change Diet Order: Continue Cardiac Consistent Carbohydrate Diet Add Supplement/Snack (indicate name/kcal Ensure Enlive daily /protein ) Provides kCal: 350 Provides Protein (gm) 20 Goal #1 Meet at least 75% of estimated energy and protein needs via PO and ONS Goal #2 Weight maintenance Anticipated Discharge Needs: Cardiac/Consistent CHO Follow-Up By: 04/24/20 Additional Comments F/U for stable intakes, ONS tolerance, weight
[2020-04-23] MEDS: ONDANSETRON 4 MG/2 ML INJ IV PRN (21:43)
[2020-04-23] MEDS: TEMAZEPAM 15 MG CAP PO PRN (21:45)
[2020-04-24] MEDS: CLOPIDOGREL 75 MG TAB PO SCH (10:35)
[2020-04-24] MEDS: ASPIRIN 325 MG TAB PO SCH (10:35)
[2020-04-24] MEDS: ACETAMINOPHEN 325 MG TAB PO PRN ×2 (10:38→22:19)
--- NOTE | 2020-04-24 11:01 | Progress Note ---
Assessment and Plan Assessment and plan: 59 YO Male with CVA complicated by LHP and Dysarthria, Obesity, HLD presents to ED for evaluation. Patient reports "I am weaker in my left side". Patient states that he experienced sudden onset worsening left arm and leg weakness at approximately 1500 hrs. yesterday. Patient is currently incarcerated and was [facility] for the aforementioned symptoms. Patient states that he awoke from sleep this morning and was found to have worsening left-sided weakness as well as slurred speech. EMS was notified and upon arrival the patient was found to be in distress with a neurologic deficit. A code stroke was called and the patient was transported to [facility] for further care and evaluation of the aforementioned symptoms. The patient was seen and evaluated in the emergency department. All lab and imaging studies reviewed. Patient found to have symptoms consistent with CVA. Patient placed in observation status and admitted to medical floor and initiated on CVA protocol. Patient denies fever, chills, chest pain, palpitation, productive cough, skin rash, recent ill contacts, or known exposure to COVID-19. No prior admission for review. No medication listed at time of admission for reconciliation. Advanced care planning conducted in ED. Acute right pontine CVA. Hypertension. Hyperlipidemia. Obesity Leukocytosis likely reactive 04/14/2020. CTA of the head and CTA of head and neck negative for infarct or thrombus. Echocardiogram with bubble study pending MRI pending. PT/OT evaluation. Continue aspirin and Plavix (21 days). Continue statin. Continue antihypertensive medications. 04/15/2020. MRI revealed acute right-sided pontine infarction involving most of the mid samuel and a remote small deep infarction in the right thalamus. Neurology recommends aspirin 325 mg p.o. daily and Plavix 75 mg for 90 days. Continue statin therapy as well. Physical therapy evaluation recommends subacute rehab. Case management consulted 04/16/2020. Await subacute rehab placement. Continue aspirin, Plavix (90 days total) and statin. PT/OT/ST 04/17/2020. MRI revealed acute right-sided pontine infarction involving most of the mid samuel and a remote small deep infarction in the right thalamus. Await subacute rehab placement. Continue aspirin, Plavix (90 days total) and statin. PT/OT/ST. 04/18/2020; MRI revealed acute right-sided pontine infarction involving most of the mid samuel and a remote small deep infarction in the right thalamus. Await subacute rehab placement. Continue aspirin, Plavix (90 days total) and statin. PT/OT/ST. 04/19/2020; patient came from group home and will be discharged there if rehab is arranged there. Continue with aspirin, Plavix and statin. 04/20/2020; patient came from group home and will be discharged there if rehab is arranged there. Continue with aspirin, Plavix and statin. Pending transfer to [facility] for rehab, likely Friday. 04/21/2020; patient came from group home and will be discharged there if rehab is arranged there. Continue with aspirin, Plavix and statin. Pending transfer to [facility] for rehab, likely Friday. 04/22/2020; patient came from group home and will be discharged there if rehab is arranged there. Continue with aspirin, Plavix and statin. Pending transfer to [facility] for rehab, likely Friday. 04/23/2020 patient came from group home and will be discharged there if rehab is arranged there. Continue with aspirin, Plavix and statin. Pending transfer to [facility] for rehab, likely Friday. Please follow with case management. 04/24: Continue current management no new complaints. We will continue rehab in house while awaiting transfer. Recheck labs in a.m. to ensure the leukocytosis is resolved History Interval history: Patient seen and examined continues to complain of left-sided weakness. No other complaints. 2 security officers in the room. Hospitalist Physical - Physical exam Narrative exam: VITAL SIGNS: Reviewed. GENERAL: The patient appears normally developed, Vital signs as documented. HEAD: No signs of head trauma. EYES: Pupils are equal. Extraocular motions intact. EARS: Hearing grossly intact. MOUTH: Oropharynx is normal. NECK: No adenopathy, no JVD. CHEST: Chest with clear breath sounds bilaterally. No wheezes, rales, or rhonchi. CARDIAC: Regular rate and rhythm. S1 and S2, without murmurs, gallops, or rubs. VASCULAR: No Edema. Peripheral pulses normal and equal in all extremities. ABDOMEN: Soft, non tender and non distended. No rebound or guarding, and no masses palpated. Bowel Sounds normal. MUSCULOSKELETAL: Good range of motion of all major joints. Extremities without clubbing, cyanosis or edema. NEUROLOGIC EXAM: Alert and oriented x 3 left-sided motor strength 1/5. Speech normal. Follows commands. PSYCHIATRIC: Mood normal. SKIN: detail exam as documented in skin assessment - Constitutional Vitals: Temp Pulse Resp BP Pulse Ox 97.9 F 82 16 134/84 88 04/24/20 08:40 04/24/20 08:40 04/24/20 10:38 04/24/20 08:40 04/24/20 08:40 General appearance: Present: no acute distress HEART Score - HEART Score Troponin: Troponin T < 0.010 ng/mL (0.00-0.029) 04/12/20 14:47 Results - Labs CBC & Chem 7: 04/18/20 04:51 04/18/20 04:51 Labs: Laboratory Last Values WBC 11.6 K/mm3 (4.5-11.0) H 04/18/20 04:51 RBC 5.30 M/mm3 (3.65-5.03) H 04/18/20 04:51 Hgb 17.0 gm/dl (11.8-15.2) H 04/18/20 04:51 Hct 49.4 % (35.5-45.6) H 04/18/20 04:51 MCV 93 fl (84-94) 04/18/20 04:51 MCH 32 pg (28-32) 04/18/20 04:51 MCHC 34 % (32-34) 04/18/20 04:51 RDW 13.1 % (13.2-15.2) L 04/18/20 04:51 Plt Count 242 K/mm3 (140-440) 04/18/20 04:51 Lymph % (Auto) 16.5 % (13.4-35.0) 04/18/20 04:51 [place] % (Auto) 8.5 % (0.0-7.3) H 04/18/20 04:51 Eos % (Auto) 2.8 % (0.0-4.3) 04/18/20 04:51 Baso % (Auto) 0.5 % (0.0-1.8) 04/18/20 04:51 Lymph # (Auto) 1.9 K/mm3 (1.2-5.4) 04/18/20 04:51 [place] # (Auto) 1.0 K/mm3 (0.0-0.8) H 04/18/20 04:51 Eos # (Auto) 0.3 K/mm3 (0.0-0.4) 04/18/20 04:51 Baso # (Auto) 0.1 K/mm3 (0.0-0.1) 04/18/20 04:51 Seg Neutrophils % 71.7 % (40.0-70.0) H 04/18/20 04:51 Seg Neutrophils # 8.3 K/mm3 (1.8-7.7) H 04/18/20 04:51 PT 13.3 Sec. (12.2-14.9) 04/12/20 14:47 INR 1.02 (0.87-1.13) 04/12/20 14:47 APTT 29.5 Sec. (24.2-36.6) 04/12/20 14:47 Thrombin Time 17.7 Sec. (15.1-19.6) 04/12/20 14:47 Sodium 138 mmol/L (137-145) 04/18/20 04:51 Potassium 3.9 mmol/L (3.6-5.0) 04/18/20 04:51 Chloride 103.8 mmol/L (98-107) 04/18/20 04:51 Carbon Dioxide 24 mmol/L (22-30) 04/18/20 04:51 Anion Gap 14 mmol/L 04/18/20 04:51 BUN 25 mg/dL (9-20) H 04/18/20 04:51 Creatinine 0.7 mg/dL (0.8-1.3) L 04/18/20 04:51 Estimated GFR > 60 ml/min 04/18/20 04:51 BUN/Creatinine Ratio 36 % 04/18/20 04:51 Glucose 102 mg/dL (75-100) H 04/18/20 04:51 Hemoglobin A1c 5.4 % (4-6) 04/14/20 04:50 Calcium 8.9 mg/dL (8.4-10.2) 04/18/20 04:51 Troponin T < 0.010 ng/mL (0.00-0.029) 04/12/20 14:47 Triglycerides 124 mg/dL (2-149) 04/14/20 04:50 Cholesterol 108 mg/dL (50-199) 04/14/20 04:50 LDL Cholesterol Direct 61 mg/dL (50-130) 04/14/20 04:50 HDL Cholesterol 37 mg/dL (40-59) L 04/14/20 04:50 Cholesterol/HDL Ratio 2.91 % 04/14/20 04:50 Nasal Screen MRSA (PCR) Negative (Negative) 04/13/20 03:38 King/IV: Voiding Method Condom Catheter Active Medications - Current Medications Current Medications: Generic Name Dose Route Start Last Admin Trade Name Freq PRN Reason Stop Dose Admin Acetaminophen 650 mg 04/12/20 15:39 04/24/20 10:38 Acetaminophen 325 Mg Tab PO 650 mg Q4H PRN Administration Pain, Mild (1-3) Albuterol 2.5 mg 04/12/20 15:39 Albuterol 2.5 Mg/3 Ml Nebu IH Q3HRT PRN Shortness Of Breath Aspirin 325 mg 04/13/20 10:00 04/24/20 10:35 Aspirin 325 Mg Tab PO 325 mg QDAY TAYLOR Administration Atorvastatin Calcium 80 mg 04/13/20 22:00 04/23/20 21:43 Atorvastatin 40 Mg Tab PO 80 mg QHS TAYLOR Administration Bisacodyl 10 mg 04/12/20 15:39 Bisacodyl 10 Mg Rect Supp MT QDAY PRN Constipation Bisacodyl 10 mg 04/14/20 10:00 04/14/20 10:01 Bisacodyl 5 Mg Tab PO 10 mg QDAY PRN Administration Constipation Clopidogrel Bisulfate 75 mg 04/13/20 10:00 04/24/20 10:35 Clopidogrel 75 Mg Tab PO 07/11/20 10:01 75 mg QDAY TAYLOR Administration Magnesium Hydroxide 30 ml 04/12/20 15:39 Magnesium Hydroxide (Mom) Oral Liqd Udc PO Q4H PRN Constipation Metoclopramide HCl 10 mg 04/12/20 15:39 04/20/20 21:28 Metoclopramide 10 Mg Tab PO 10 mg Q6H PRN Administration Nausea And Vomiting Ondansetron HCl 4 mg 04/12/20 15:39 04/23/20 21:43 Ondansetron 4 Mg/2 Ml Inj IV 4 mg Q8H PRN Administration Nausea And Vomiting Promethazine HCl 25 mg 04/12/20 15:39 04/18/20 23:11 Promethazine 25 Mg Rect Supp MT 25 mg Q6H PRN Administration Nausea And Vomiting Sodium Chloride 10 ml 04/12/20 15:39 04/23/20 21:46 Sodium Chloride 0.9% 10 Ml Flush Syringe IV 10 ml PRN PRN Administration LINE FLUSH Temazepam 15 mg 04/19/20 21:11 04/23/20 21:45 Temazepam 15 Mg Cap PO 15 mg QHS PRN Administration Sleep Nutrition/Malnutrition Assess - Dietary Evaluation Nutrition/Malnutrition Findings: Nutrition Notes Start: 04/13/20 09:42 Freq: Status: Active Protocol: Document 04/21/20 11:48 AT (Rec: 04/21/20 12:03 AT [id number]) Co-Sign 04/21/20 11:48 CW Nutrition Notes Initial or Follow up Reassessment Current Diagnosis Stroke,Hyperlipidemia Other Pertinent Diagnosis dysarthria, SOB, (R) pontine infarction Current Diet Cardiac/Consistent CHO Labs/Tests BUN 25 Cr 0.7 Pertinent Medications Reviewed Height 5 ft 8 in Weight 98.6 kg [place] Body Weight (kg) 70.00 BMI 33.0 Intake Prior to Admission Excellent Weight change and time frame Wt fluctuation noted. 4% weight loss from UBW/adm wt in one week. Weight Status Obese Subjective/Other Information Follow up for wt stability, intake, and ONS tolerance. Pt reports that he has a normal appetite, but is only consuming 20%, because of his upset stomach. Pt's preferences were recorded and pt did not want ONS BID, because he cannot tolerate room temperature beverages. Preferences communicated to dietary. Per chart, pt is consuming 40% of meals on average. 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 Does not like apple juice, applesauce, spinach Current % PO Poor (25-49%) Minimum of two criteria Yes Interpretation of Weight Loss (severe) >2% in 1 week Reduced [employer] Strength N/A (non-severe) #3 Nutrition Diagnosis Malnutrition Etiology GI discomfort, swallowing/ chewing difficulties As Evidenced by Signs and Symptoms 4% weight loss x 8 days, left weak miner pick strenth, and pt reports cnsuming 20% of meals #2 Nutrition Diagnosis Inadequate oral intake As Evidenced by Signs and Symptoms pt reports consuming 20% of meals, per chart pt consuming 40% of meals on average Diagnosis Progress(for reassessment Worsened documentation) Is patient on ventilator? No Is Patient Ambulatory and/or Out of Bed No [facility] 2123.268 Kcal/Kg value to use for calculation 19 Approximate Energy Requirements Using 1873 kcal/Kg Calculation Used for Recommendations Kcal/kg Additional Notes PRO needs: 100-126g (1.2-1.5g/ kg AdBW 84kg) Fluid needs: 1 mL/kcal or per MD Nutrition Intervention Change Diet Order: Continue Cardiac Consistent Carbohydrate Diet Add Supplement/Snack (indicate name/kcal Ensure Enlive daily /protein ) Provides kCal: 350 Provides Protein (gm) 20 Goal #1 Meet at least 75% of estimated energy and protein needs via PO and ONS Goal #2 Weight maintenance Anticipated Discharge Needs: Cardiac/Consistent CHO Follow-Up By: 04/24/20 Additional Comments F/U for stable intakes, ONS tolerance, weight
[2020-04-24] MEDS: ONDANSETRON 4 MG/2 ML INJ IV PRN (22:19)
[2020-04-25 05:34] LABS: Hematocrit 45.5 % (35.5-45.6); Hemoglobin 15.7 gm/dl (11.8-15.2); Mean Corpuscular HGB Conc 35 % (32-34); Mean Corpuscular Volume 93 fl (84-94); Platelet Count 274 K/mm3 (140-440); Red Blood Count 4.88 M/mm3 (3.65-5.03); Red Cell Distribution Width 13.2 % (13.2-15.2)
[2020-04-25] MEDS: ACETAMINOPHEN 325 MG TAB PO PRN ×2 (11:48→22:17)
[2020-04-25] MEDS: ASPIRIN 325 MG TAB PO SCH (11:48)
[2020-04-25] MEDS: CLOPIDOGREL 75 MG TAB PO SCH (11:49)
--- NOTE | 2020-04-25 13:14 | Progress Note ---
Assessment and Plan Assessment and plan: 59 YO Male with CVA complicated by LHP and Dysarthria, Obesity, HLD presents to ED for evaluation. Patient reports "I am weaker in my left side". Patient states that he experienced sudden onset worsening left arm and leg weakness at approximately 1500 hrs. yesterday. Patient is currently incarcerated and was seen in the [facility] for the aforementioned symptoms. Patient states that he awoke from sleep this morning and was found to have worsening left-sided weakness as well as slurred speech. EMS was notified and upon arrival the patient was found to be in distress with a neurologic deficit. A code stroke was called and the patient was transported to [facility] for further care and evaluation of the aforementioned symptoms. The patient was seen and evaluated in the emergency department. All lab and imaging studies reviewed. Patient found to have symptoms consistent with CVA. Patient placed in observation status and admitted to medical floor and initiated on CVA protocol. Patient denies fever, chills, chest pain, palpitation, productive cough, skin rash, recent ill contacts, or known exposure to COVID-19. No prior admission for review. No medication listed at time of admission for reconciliation. Advanced care planning conducted in ED. Acute right pontine CVA. Hypertension. Hyperlipidemia. Obesity Leukocytosis likely reactive 04/14/2020. CTA of the head and CTA of head and neck negative for infarct or thrombus. Echocardiogram with bubble study pending MRI pending. PT/OT evaluation. Continue aspirin and Plavix (21 days). Continue statin. Continue antihypertensive medications. 04/15/2020. MRI revealed acute right-sided pontine infarction involving most of the mid samuel and a remote small deep infarction in the right thalamus. Neurology recommends aspirin 325 mg p.o. daily and Plavix 75 mg for 90 days. Continue statin therapy as well. Physical therapy evaluation recommends subacute rehab. Case management consulted 04/16/2020. Await subacute rehab placement. Continue aspirin, Plavix (90 days total) and statin. PT/OT/ST 04/17/2020. MRI revealed acute right-sided pontine infarction involving most of the mid samuel and a remote small deep infarction in the right thalamus. Await subacute rehab placement. Continue aspirin, Plavix (90 days total) and statin. PT/OT/ST. 04/18/2020; MRI revealed acute right-sided pontine infarction involving most of the mid samuel and a remote small deep infarction in the right thalamus. Await subacute rehab placement. Continue aspirin, Plavix (90 days total) and statin. PT/OT/ST. 04/19/2020; [facility] from [facility] and will be discharged there if rehab is arranged there. Continue with aspirin, Plavix and statin. 04/20/2020; patient came from [facility] and will be discharged there if rehab is arranged there. Continue with aspirin, Plavix and statin. Pending transfer to [facility] for rehab, likely Friday. 04/21/2020; patient came from [facility] and will be discharged there if rehab is arranged there. Continue with aspirin, Plavix and statin. Pending transfer to [facility] for rehab, likely Friday. 04/22/2020; patient came from [facility] and will be discharged there if rehab is arranged there. Continue with aspirin, Plavix and statin. Pending transfer to [facility] for rehab, likely Friday. 04/23/2020 patient came from [facility] and will be discharged there if rehab is arranged there. Continue with aspirin, Plavix and statin. Pending transfer to [facility] for rehab, likely Friday. Please follow with case management. 04/24: Continue current management no new complaints. We will continue rehab in house while awaiting transfer. Recheck labs in a.m. to ensure the leukocytosis is resolved 04/25: Continue supportive care. awaiting rehab plans. OT input noted. History Interval history: Patient seen and examined continues to complain of left-sided weakness. No other complaints. 2 security officers in the room. Hospitalist Physical - Physical exam Narrative exam: VITAL SIGNS: Reviewed. GENERAL: The patient appears normally developed, Vital signs as documented. HEAD: No signs of head trauma. EYES: Pupils are equal. Extraocular motions intact. EARS: Hearing grossly intact. MOUTH: Oropharynx is normal. NECK: No adenopathy, no JVD. CHEST: Chest with clear breath sounds bilaterally. No wheezes, rales, or rhonchi. CARDIAC: Regular rate and rhythm. S1 and S2, without murmurs, gallops, or rubs. VASCULAR: No Edema. Peripheral pulses normal and equal in all extremities. ABDOMEN: Soft, non tender and non distended. No rebound or guarding, and no masses palpated. Bowel Sounds normal. MUSCULOSKELETAL: Good range of motion of all major joints. Extremities without clubbing, cyanosis or edema. NEUROLOGIC EXAM: Alert and oriented x 3 left-sided motor strength 1/5. Speech normal. Follows commands. PSYCHIATRIC: Mood normal. SKIN: detail exam as documented in skin assessment - Constitutional Vitals: Temp Pulse Resp BP Pulse Ox 98.3 F 76 15 135/85 91 04/25/20 07:30 04/25/20 07:30 04/25/20 07:30 04/25/20 07:30 04/25/20 08:39 General appearance: Present: no acute distress HEART Score - HEART Score Troponin: Troponin T < 0.010 ng/mL (0.00-0.029) 04/12/20 14:47 Results - Labs CBC & Chem 7: 04/25/20 05:04 04/18/20 04:51 Labs: Laboratory Last Values WBC 11.1 K/mm3 (4.5-11.0) H 04/25/20 05:04 RBC 4.88 M/mm3 (3.65-5.03) 04/25/20 05:04 Hgb 15.7 gm/dl (11.8-15.2) H 04/25/20 05:04 Hct 45.5 % (35.5-45.6) 04/25/20 05:04 MCV 93 fl (84-94) 04/25/20 05:04 MCH 32 pg (28-32) 04/25/20 05:04 MCHC 35 % (32-34) H 04/25/20 05:04 RDW 13.2 % (13.2-15.2) 04/25/20 05:04 Plt Count 274 K/mm3 (140-440) 04/25/20 05:04 Lymph % (Auto) 16.5 % (13.4-35.0) 04/18/20 04:51 [place] % (Auto) 8.5 % (0.0-7.3) H 04/18/20 04:51 Eos % (Auto) 2.8 % (0.0-4.3) 04/18/20 04:51 Baso % (Auto) 0.5 % (0.0-1.8) 04/18/20 04:51 Lymph # (Auto) 1.9 K/mm3 (1.2-5.4) 04/18/20 04:51 [place] # (Auto) 1.0 K/mm3 (0.0-0.8) H 04/18/20 04:51 Eos # (Auto) 0.3 K/mm3 (0.0-0.4) 04/18/20 04:51 Baso # (Auto) 0.1 K/mm3 (0.0-0.1) 04/18/20 04:51 Seg Neutrophils % 71.7 % (40.0-70.0) H 04/18/20 04:51 Seg Neutrophils # 8.3 K/mm3 (1.8-7.7) H 04/18/20 04:51 PT 13.3 Sec. (12.2-14.9) 04/12/20 14:47 INR 1.02 (0.87-1.13) 04/12/20 14:47 APTT 29.5 Sec. (24.2-36.6) 04/12/20 14:47 Thrombin Time 17.7 Sec. (15.1-19.6) 04/12/20 14:47 Sodium 138 mmol/L (137-145) 04/18/20 04:51 Potassium 3.9 mmol/L (3.6-5.0) 04/18/20 04:51 Chloride 103.8 mmol/L (98-107) 04/18/20 04:51 Carbon Dioxide 24 mmol/L (22-30) 04/18/20 04:51 Anion Gap 14 mmol/L 04/18/20 04:51 BUN 25 mg/dL (9-20) H 04/18/20 04:51 Creatinine 0.7 mg/dL (0.8-1.3) L 04/18/20 04:51 Estimated GFR > 60 ml/min 04/18/20 04:51 BUN/Creatinine Ratio 36 % 04/18/20 04:51 Glucose 102 mg/dL (75-100) H 04/18/20 04:51 Hemoglobin A1c 5.4 % (4-6) 04/14/20 04:50 Calcium 8.9 mg/dL (8.4-10.2) 04/18/20 04:51 Troponin T < 0.010 ng/mL (0.00-0.029) 04/12/20 14:47 Triglycerides 124 mg/dL (2-149) 04/14/20 04:50 Cholesterol 108 mg/dL (50-199) 04/14/20 04:50 LDL Cholesterol Direct 61 mg/dL (50-130) 04/14/20 04:50 HDL Cholesterol 37 mg/dL (40-59) L 04/14/20 04:50 Cholesterol/HDL Ratio 2.91 % 04/14/20 04:50 Nasal Screen MRSA (PCR) Negative (Negative) 04/13/20 03:38 King/IV: Voiding Method Condom Catheter Active Medications - Current Medications Current Medications: Generic Name Dose Route Start Last Admin Trade Name Freq PRN Reason Stop Dose Admin Acetaminophen 650 mg 04/12/20 15:39 04/25/20 11:48 Acetaminophen 325 Mg Tab PO 650 mg Q4H PRN Administration Pain, Mild (1-3) Albuterol 2.5 mg 04/12/20 15:39 Albuterol 2.5 Mg/3 Ml Nebu IH Q3HRT PRN Shortness Of Breath Aspirin 325 mg 04/13/20 10:00 04/25/20 11:48 Aspirin 325 Mg Tab PO 325 mg QDAY TAYLOR Administration Atorvastatin Calcium 80 mg 04/13/20 22:00 04/24/20 22:12 Atorvastatin 40 Mg Tab PO 80 mg QHS TAYLOR Administration Bisacodyl 10 mg 04/12/20 15:39 Bisacodyl 10 Mg Rect Supp MO QDAY PRN Constipation Bisacodyl 10 mg 04/14/20 10:00 04/14/20 10:01 Bisacodyl 5 Mg Tab PO 10 mg QDAY PRN Administration Constipation Clopidogrel Bisulfate 75 mg 04/13/20 10:00 04/25/20 11:49 Clopidogrel 75 Mg Tab PO 07/11/20 10:01 75 mg QDAY TAYLOR Administration Magnesium Hydroxide 30 ml 04/12/20 15:39 Magnesium Hydroxide (Mom) Oral Liqd Udc PO Q4H PRN Constipation Metoclopramide HCl 10 mg 04/12/20 15:39 04/20/20 21:28 Metoclopramide 10 Mg Tab PO 10 mg Q6H PRN Administration Nausea And Vomiting Ondansetron HCl 4 mg 04/12/20 15:39 04/24/20 22:19 Ondansetron 4 Mg/2 Ml Inj IV 4 mg Q8H PRN Administration Nausea And Vomiting Promethazine HCl 25 mg 04/12/20 15:39 04/18/20 23:11 Promethazine 25 Mg Rect Supp [place] 25 mg Q6H PRN Administration Nausea And Vomiting Sodium Chloride 10 ml 04/12/20 15:39 04/23/20 21:46 Sodium Chloride 0.9% 10 Ml Flush Syringe IV 10 ml PRN PRN Administration LINE FLUSH Temazepam 15 mg 04/19/20 21:11 04/23/20 21:45 Temazepam 15 Mg Cap PO 15 mg QHS PRN Administration Sleep Nutrition/Malnutrition Assess - Dietary Evaluation Nutrition/Malnutrition Findings: Nutrition Notes Start: 04/13/20 09:42 Freq: Status: Active Protocol: Document 04/24/20 11:49 MK (Rec: 04/24/20 12:00 MK [id number]) Nutrition Notes Initial or Follow up Reassessment Current Diagnosis Stroke,Hyperlipidemia Other Pertinent Diagnosis dysarthria, SOB, (R) pontine infarction Current Diet Cardiac/Consistent CHO Labs/Tests Reviewed Pertinent Medications Reviewed Height 5 ft 8 in Weight 100.3 kg [place] Body Weight (kg) 70.00 BMI 33.6 Weight Status Obese Subjective/Other Information FU for intakes. Pt reports eating 25% of meals and 100% ONS. Will liberalize diet to increase intakes. 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 No Is Patient Ambulatory and/or Out of Bed No REE-([facility]confined [facility] bed) 2143.656 Kcal/Kg value to use for calculation 19 Approximate Energy Requirements Using 1906 kcal/Kg Calculation Used for Recommendations Kcal/kg Additional Notes PRO needs: 100-126g (1.2-1.5g/ kg AdBW 84kg) Fluid needs: 1 mL/kcal or per MD Nutrition Intervention Change Diet Order: Change to Cardiac Add Supplement/Snack (indicate name/kcal Ensure Enlive BID /protein ) Provides kCal: 700 Provides Protein (gm) 40 Goal #1 Meet at least 75% of estimated energy and protein needs via PO and ONS Goal #2 Weight maintenance Anticipated Discharge Needs: Cardiac diet Follow-Up By: 04/26/20 Additional Comments FU for intakes, wt
[2020-04-25] MEDS: TEMAZEPAM 15 MG CAP PO PRN (22:16)
[2020-04-26] MEDS: ASPIRIN 325 MG TAB PO SCH (09:35)
[2020-04-26] MEDS: CLOPIDOGREL 75 MG TAB PO SCH (09:35)
[2020-04-26] MEDS: ACETAMINOPHEN 325 MG TAB PO PRN ×2 (09:35→21:21)
--- NOTE | 2020-04-26 10:44 | Discharge Summary ---
Providers - Providers Date of Admission: 04/13/20 11:46 Attending physician: PA ASHFORD MD 04/12/20 15:39 Occupational Therapy Evaluate and Treat [CONS] Routine Comment: Reason For Exam: Neuro deficits Physical Therapy Evaluation and Treat [CONS] Routine Comment: Reason For Exam: Neuro deficits 04/12/20 15:41 Speech Therapy Evaluation and Treat [CONS] Routine Reason For Exam: swallow eval 04/13/20 15:03 Speech Therapy Evaluation and Treat [CONS] Routine Reason For Exam: coughing with swallowing 04/14/20 08:48 Consult to Physician [CONS] Routine Comment: Consulting Provider: JAMI DUBOIS Physician Instructions: Reason For Exam: CVA 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 Patient reports "I am weaker in my left side". Patient sta ramez that he experienced sudden onset worsening left arm and leg weakness at approximately 1500 hrs. yesterday. Patient is currently incarcerated and was seen in the [facility] for the aforementioned symptoms. Patient states that he awoke from sleep this morning and was found to have worsening left-sided weakness as well as slurred speech. EMS was notified and upon arrival the patient was found to be in distress with a neurologic deficit. A code stroke was called and the patient was transported to [facility] for further care and evaluation of the aforementioned symptoms. The patient was seen and evaluated in the emergency department. All lab and imaging studies reviewed. Patient found to have symptoms consistent with CVA. Patient placed in observation status and admitted to medical floor and initiated on CVA protocol. Patient denies fever, chills, chest pain, palpitation, productive cough, skin rash, recent ill contacts, or known exposure to COVID-19. No prior admission for review. No medication listed at time of admission for reconciliation. Advanced care planning conducted in ED. Acute right pontine CVA. Hypertension. Hyperlipidemia. Obesity Leukocytosis likely reactive 04/14/2020. CTA of the head and CTA of head and neck negative for infarct or thrombus. Echocardiogram with bubble study pending MRI pending. PT/OT evaluation. Continue aspirin and Plavix (21 days). Continue statin. Continue antihypertensive medications. 04/15/2020. MRI revealed acute right-sided pontine infarction involving most of the mid samuel and a remote small deep infarction in the right thalamus. Neurology recommends aspirin 325 mg p.o. daily and Plavix 75 mg for 90 days. Continue statin therapy as well. Physical therapy evaluation recommends subacute rehab. Case management consulted 04/16/2020. Await subacute rehab placement. Continue aspirin, Plavix (90 days total) and statin. PT/OT/ST 04/17/2020. MRI revealed acute right-sided pontine infarction involving most of the mid samuel and a remote small deep infarction in the right thalamus. Await subacute rehab placement. Continue aspirin, Plavix (90 days total) and statin. PT/OT/ST. 04/18/2020; MRI revealed acute right-sided pontine infarction involving most of the mid samuel and a remote small deep infarction in the right thalamus. Await subacute rehab placement. Continue aspirin, Plavix (90 days total) and statin. PT/OT/ST. 04/19/2020; patient came from assisted and will be discharged there if rehab is arranged there. Continue with aspirin, Plavix and statin. 04/20/2020; patient came from assisted and will be discharged there if rehab is arranged there. Continue with aspirin, Plavix and statin. Pending transfer to [facility] for rehab, likely Friday. 04/21/2020; patient came from assisted and will be discharged there if rehab is arranged there. Continue with aspirin, Plavix and statin. Pending transfer to [facility] for rehab, likely Friday. 04/22/2020; patient came from assisted and will be discharged there if rehab is arranged there. Continue with aspirin, Plavix and statin. Pending transfer to [facility] for rehab, likely Friday. 04/23/2020 patient came from assisted and will be discharged there if rehab is arranged there. Continue with aspirin, Plavix and statin. Pending transfer to [facility] for rehab, likely Friday. Please follow with case management. 04/24: Continue current management no new complaints. We will continue rehab in house while awaiting transfer. Recheck labs in a.m. to ensure the leukocytosis is resolved 04/25: Continue supportive care. awaiting rehab plans. OT input noted. 04/26: Continue supportive care. Patient has been accepted in inpatient acute rehab no new changes noted today clinically. Will discharge to acute inpatient rehab. Leukocytosis is improving. Disposition: [id number]PT [facility] FAC[facility] Final Discharge Diagnosis (Prints w/discharge instructions): Acute CVA Time spent for discharge: 35-minute Core Measure Documentation - Palliative Care Palliative Care/ Comfort Measures: Not Applicable - Core Measures Any of the following diagnoses?: stroke - Stroke Discharge Requirements Statin for LDL = or >70 mg/dl on DC: Yes Anticoag for atrial fib/atrial flutter: Not Applicable Antithrombotic for ischemic stroke: Yes Exam - Physical Exam Narrative exam: VITAL SIGNS: Reviewed. GENERAL: The patient appears normally developed, Vital signs as documented. HEAD: No signs of head trauma. EYES: Pupils are equal. Extraocular motions intact. EARS: Hearing grossly intact. MOUTH: Oropharynx is normal. NECK: No adenopathy, no JVD. CHEST: Chest with clear breath sounds bilaterally. No wheezes, rales, or rhonchi. CARDIAC: Regular rate and rhythm. S1 and S2, without murmurs, gallops, or rubs. VASCULAR: No Edema. Peripheral pulses normal and equal in all extremities. ABDOMEN: Soft, non tender and non distended. No rebound or guarding, and no masses palpated. Bowel Sounds normal. MUSCULOSKELETAL: Good range of motion of all major joints. Extremities without clubbing, cyanosis or edema. NEUROLOGIC EXAM: Alert and oriented x 3 left-sided motor strength 1/5. Speech normal. Follows commands. PSYCHIATRIC: Mood normal. SKIN: detail exam as documented in skin assessment - Constitutional Vitals: Temp Pulse Resp BP Pulse Ox 97.4 F L 79 15 146/94 91 04/26/20 07:48 04/26/20 07:48 04/26/20 07:48 04/26/20 07:48 04/26/20 07:48 Plan Activity: advance as tolerated, fall precautions Diet: low fat Special Instructions: record daily weights, record daily BP diary Follow up with: PRIMARY CARE, [Primary Care Provider] - 7 Days Prescriptions: AtorvaSTATin [Lipitor] 80 mg PO QHS #30 tablet Temazepam [Restoril] 15 mg PO QHS PRN #30 capsule PRN Reason: Sleep Aspirin 325 mg PO QDAY #30 tablet Clopidogrel [Plavix] 75 mg PO QDAY #30 tablet Ondansetron [Zofran Odt] 4 mg PO Q8HR #30 tab.paramjitdis
[2020-04-26] MEDS: TEMAZEPAM 15 MG CAP PO PRN (21:23)
[2020-04-27 08:49] VITALS: BP 136/80
[2020-04-27] MEDS: ACETAMINOPHEN 325 MG TAB PO PRN (09:14)
[2020-04-27] MEDS: ASPIRIN 325 MG TAB PO SCH (09:14)
[2020-04-27] MEDS: CLOPIDOGREL 75 MG TAB PO SCH (09:15)
--- NOTE | 2020-04-27 12:24 | Progress Note ---
Assessment and Plan Assessment and plan: 59 YO Male with CVA complicated by LHP and Dysarthria, Obesity, HLD presents to ED for evaluation. Patient reports "I am weaker in my left side". Patient states that he experienced sudden onset worsening left arm and leg weakness at approximately 1500 hrs. yesterday. Patient is currently incarcerated and was seen in the [facility] for the aforementioned symptoms. Patient states that he awoke from sleep this morning and was found to have worsening left-sided weakness as well as slurred speech. EMS was notified and upon arrival the patient was found to be in distress with a neurologic deficit. A code stroke was called and the patient was transported to [facility] for further care and evaluation of the aforementioned symptoms. The patient was seen and evaluated in the emergency department. All lab and imaging studies reviewed. Patient found to have symptoms consistent with CVA. Patient placed in observation status and admitted to medical floor and initiated on CVA protocol. Patient denies fever, chills, chest pain, palpitation, productive cough, skin rash, recent ill contacts, or known exposure to COVID-19. No prior admission for review. No medication listed at time of admission for reconciliation. Advanced care planning conducted in ED. Acute right pontine CVA. Hypertension. Hyperlipidemia. Obesity Leukocytosis likely reactive 04/14/2020. CTA of the head and CTA of head and neck negative for infarct or thrombus. Echocardiogram with bubble study pending MRI pending. PT/OT evaluation. Continue aspirin and Plavix (21 days). Continue statin. Continue antihypertensive medications. 04/15/2020. MRI revealed acute right-sided pontine infarction involving most of the mid samuel and a remote small deep infarction in the right thalamus. Neurology recommends aspirin 325 mg p.o. daily and Plavix 75 mg for 90 days. Continue statin therapy as well. Physical therapy evaluation recommends subacute rehab. Case management consulted 04/16/2020. Await subacute rehab placement. Continue aspirin, Plavix (90 days total) and statin. PT/OT/ST 04/17/2020. MRI revealed acute right-sided pontine infarction involving most of the mid samuel and a remote small deep infarction in the right thalamus. Await subacute rehab placement. Continue aspirin, Plavix (90 days total) and statin. PT/OT/ST. 04/18/2020; MRI revealed acute right-sided pontine infarction involving most of the mid samuel and a remote small deep infarction in the right thalamus. Await subacute rehab placement. Continue aspirin, Plavix (90 days total) and statin. PT/OT/ST. 04/19/2020; patient came from nursing home and will be discharged there if rehab is arranged there. Continue with aspirin, Plavix and statin. 04/20/2020; patient came from nursing home and will be discharged there if rehab is arranged there. Continue with aspirin, Plavix and statin. Pending transfer to [place] for rehab, likely Friday. 04/21/2020; patient came from nursing home and will be discharged there if rehab is arranged there. Continue with aspirin, Plavix and statin. Pending transfer to [place] for rehab, likely Friday. 04/22/2020; patient came from nursing home and will be discharged there if rehab is arranged there. Continue with aspirin, Plavix and statin. Pending transfer to [place] for rehab, likely Friday. 04/23/2020 patient came from nursing home and will be discharged there if rehab is arranged there. Continue with aspirin, Plavix and statin. Pending transfer to [place] for rehab, likely Friday. Please follow with case management. 04/24: Continue current management no new complaints. We will continue rehab in house while awaiting transfer. Recheck labs in a.m. to ensure the leukocytosis is resolved 04/25: Continue supportive care. awaiting rehab plans. OT input noted. 04/27: Patient was discharged yesterday as reflected on the discharge summary done yesterday. Unfortunately could not leave due to some payment issues with rehab has been settled the patient can be discharged today History Interval history: Patient seen and examined continues to complain of left-sided weakness. No other complaints. 2 security officers in the room. Hospitalist Physical - Physical exam Narrative exam: VITAL SIGNS: Reviewed. GENERAL: The patient appears normally developed, Vital signs as documented. HEAD: No signs of head trauma. EYES: Pupils are equal. Extraocular motions intact. EARS: Hearing grossly intact. MOUTH: Oropharynx is normal. NECK: No adenopathy, no JVD. CHEST: Chest with clear breath sounds bilaterally. No wheezes, rales, or rhonchi. CARDIAC: Regular rate and rhythm. S1 and S2, without murmurs, gallops, or rubs. VASCULAR: No Edema. Peripheral pulses normal and equal in all extremities. ABDOMEN: Soft, non tender and non distended. No rebound or guarding, and no masses palpated. Bowel Sounds normal. MUSCULOSKELETAL: Good range of motion of all major joints. Extremities without clubbing, cyanosis or edema. NEUROLOGIC EXAM: Alert and oriented x 3 left-sided motor strength 1/5. Speech normal. Follows commands. PSYCHIATRIC: Mood normal. SKIN: detail exam as documented in skin assessment - Constitutional Vitals: Temp Pulse Resp BP Pulse Ox 97.4 F L 63 16 136/80 94 04/27/20 08:40 04/27/20 10:00 04/27/20 03:45 04/27/20 08:40 04/27/20 10:17 General appearance: Present: no acute distress HEART Score - HEART Score Troponin: Troponin T < 0.010 ng/mL (0.00-0.029) 04/12/20 14:47 Results - Labs CBC & Chem 7: 04/25/20 05:04 04/18/20 04:51 Labs: Laboratory Last Values WBC 11.1 K/mm3 (4.5-11.0) H 04/25/20 05:04 RBC 4.88 M/mm3 (3.65-5.03) 04/25/20 05:04 Hgb 15.7 gm/dl (11.8-15.2) H 04/25/20 05:04 Hct 45.5 % (35.5-45.6) 04/25/20 05:04 MCV 93 fl (84-94) 04/25/20 05:04 MCH 32 pg (28-32) 04/25/20 05:04 MCHC 35 % (32-34) H 04/25/20 05:04 RDW 13.2 % (13.2-15.2) 04/25/20 05:04 Plt Count 274 K/mm3 (140-440) 04/25/20 05:04 Lymph % (Auto) 16.5 % (13.4-35.0) 04/18/20 04:51 [place] % (Auto) 8.5 % (0.0-7.3) H 04/18/20 04:51 Eos % (Auto) 2.8 % (0.0-4.3) 04/18/20 04:51 Baso % (Auto) 0.5 % (0.0-1.8) 04/18/20 04:51 Lymph # (Auto) 1.9 K/mm3 (1.2-5.4) 04/18/20 04:51 [place] # (Auto) 1.0 K/mm3 (0.0-0.8) H 04/18/20 04:51 Eos # (Auto) 0.3 K/mm3 (0.0-0.4) 04/18/20 04:51 Baso # (Auto) 0.1 K/mm3 (0.0-0.1) 04/18/20 04:51 Seg Neutrophils % 71.7 % (40.0-70.0) H 04/18/20 04:51 Seg Neutrophils # 8.3 K/mm3 (1.8-7.7) H 04/18/20 04:51 PT 13.3 Sec. (12.2-14.9) 04/12/20 14:47 INR 1.02 (0.87-1.13) 04/12/20 14:47 APTT 29.5 Sec. (24.2-36.6) 04/12/20 14:47 Thrombin Time 17.7 Sec. (15.1-19.6) 04/12/20 14:47 Sodium 138 mmol/L (137-145) 04/18/20 04:51 Potassium 3.9 mmol/L (3.6-5.0) 04/18/20 04:51 Chloride 103.8 mmol/L (98-107) 04/18/20 04:51 Carbon Dioxide 24 mmol/L (22-30) 04/18/20 04:51 Anion Gap 14 mmol/L 04/18/20 04:51 BUN 25 mg/dL (9-20) H 04/18/20 04:51 Creatinine 0.7 mg/dL (0.8-1.3) L 04/18/20 04:51 Estimated GFR > 60 ml/min 04/18/20 04:51 BUN/Creatinine Ratio 36 % 04/18/20 04:51 Glucose 102 mg/dL (75-100) H 04/18/20 04:51 Hemoglobin A1c 5.4 % (4-6) 04/14/20 04:50 Calcium 8.9 mg/dL (8.4-10.2) 04/18/20 04:51 Troponin T < 0.010 ng/mL (0.00-0.029) 04/12/20 14:47 Triglycerides 124 mg/dL (2-149) 04/14/20 04:50 Cholesterol 108 mg/dL (50-199) 04/14/20 04:50 LDL Cholesterol Direct 61 mg/dL (50-130) 04/14/20 04:50 HDL Cholesterol 37 mg/dL (40-59) L 04/14/20 04:50 Cholesterol/HDL Ratio 2.91 % 04/14/20 04:50 Nasal Screen MRSA (PCR) Negative (Negative) 04/13/20 03:38 [place]/IV: Voiding Method Urinal Nutrition/Malnutrition Assess - Dietary Evaluation Nutrition/Malnutrition Findings: Nutrition Notes Start: 04/13/20 09:42 Freq: Status: Discharge Protocol: Document 04/26/20 08:53 CW (Rec: 04/26/20 09:07 CW [id number]) Nutrition Notes Initial or Follow up Reassessment Current Diagnosis Stroke,Hyperlipidemia Other Pertinent Diagnosis dysarthria, SOB, (R) pontine infarction Current Diet Cardiac Labs/Tests No new labs Pertinent Medications Reviewed Height 5 ft 8 in Weight 101.9 kg [place] Body Weight (kg) 70.00 BMI 34.1 Intake Prior to Admission Excellent Weight change and time frame Weight change noted Weight Status Obese Subjective/Other Information F/U For intakes and weight. Weight seems to fluctuate between 98 and 101 kg. Not of concern at this time. Pt reports a PO intake of 75% of meals and 100% ONS. Diet preferences noted. 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 No Is Patient Ambulatory and/or Out of Bed No REE-([facility]-confined to bed) 2162.832 Kcal/Kg value to use for calculation 18 Approximate Energy Requirements Using 1834 kcal/Kg Calculation Used for Recommendations Kcal/kg Additional Notes PRO needs: 103 - 129g (1.2 - 1 .5 g/kg AdBW 86kg) Fluid needs: 1 mL/kcal or per MD Nutrition Intervention Change Diet Order: Continue Cardiac Diet Add Supplement/Snack (indicate name/kcal Ensure Enlive BID /protein ) Provides kCal: 700 Provides Protein (gm) 40 Goal #1 Meet at least 75% of estimated energy and protein needs via PO and ONS Goal #2 Weight maintenance Anticipated Discharge Needs: Cardiac diet Follow-Up By: 04/28/20 Additional Comments F/U for intakes, wt, ONS need
== END 2020-04-27 10:33 | DRG 65 ==
LOC: ED 14:13 → EEVIPCON 15:39 → 4A 15:39 → OBSVTOIN 04-13 11:46
PROVIDERS: ADMIT Internal Medicine; ATTEND Internal Medicine
DX: I63.9 Cerebral infarction, unspecified (principal); E87.1 Hypo-osmolality and hyponatremia; E66.9 Obesity, unspecified; E78.2 Mixed hyperlipidemia; R26.9 Unspecified abnormalities of gait and mobility; R47.1 Dysarthria and anarthria; D72.829 Elevated white blood cell count, unspecified; Z79.899 Other long term (current) drug therapy; Z88.8 Allergy status to other drugs, medicaments and biological substances; Z88.5 Allergy status to narcotic agent; Z88.0 Allergy status to penicillin; Z82.49 Family history of ischemic heart disease and other diseases of the circulatory system; Z83.3 Family history of diabetes mellitus
CPT/HCPCS: 36415; 70450; 70496; 70498; 70551; 71045; 80048; 80061; 83036; 84484; 85025; 85027; 85610; 85670; 85730; 87641; 90686; 93005; 93306; 93880; 94640; 94760; G0378; A9270-GY; J2405; Q9967